=== PATIENT | female | born 1990 | race Asian ===

== ENCOUNTER 2019-07-25 18:55 | Inpatient (IN) | payer BC ==
[2019-07-25] MEDS ORDERED: MAG HYDROX/AL HYDROX/SIMETH 30 ML UNIT-DOSE CUP PO ONE (18:59)
[2019-07-25] MEDS ORDERED: FAMOTIDINE 20 MG/50 ML IVPB 20 MG/50 ML MG IVPB ONE (18:59)
[2019-07-25] MEDS ORDERED: LIDOCAINE VISCOUS 2% ORAL/TOP 20 ML UNIT-DOSE CUP MM ONE (18:59)
[2019-07-25] MEDS ORDERED: ACETAMINOPHEN 1000 MG/100 ML VIAL (NON FORMULARY) IVPB ONE (18:59)
--- NOTE | 2019-07-25 19:12 | PDOC ---
History of Present Illness - General Chief Complaint: Pain Stated Complaint: STOMACH PAIN Time Seen by Provider: 07/25/19 18:57 History Source: Patient Exam Limitations: No Limitations - History of Present Illness Initial Comments: 07/25/19 19:06 29 yo F no PMH presenting with abdominal pain. States that she has been having constant burning abdominal pain for the past several weeks. Feels "like an upset stomach". Tried Gas X and Pepto Bismol without relief. Feels better with food, but returns right after. Pain significantly worse lying flat, better in child's pose and lying curled up. Went to a GI doctor, who suspected constipation and started her on mag citrate. Had a bowel movement, but without change in symptoms. Reports that she has had intermittent abdominal pain for multiple years, but never for as consistently prolonged a period as her current episode. Had previously thought it was related to stress. Previous endoscopy did not find anything. Endorses nausea without vomiting, but denies CP, SOB, fevers/chills, urinary symptoms, flank pain, back pain. Past History - Past Medical History Allergies/Adverse Reactions: Allergies Allergy/AdvReac Type Severity Reaction Status Date / Time No Known Allergies Allergy Verified 07/25/19 19:47 COPD: No - Psycho Social/Smoking Cessation Hx Smoking History: Never smoked Have you smoked in the past 12 months: No Information on smoking cessation initiated: No Hx Alcohol Use: No Drug/Substance Use Hx: No Review of Systems - Review of Systems Able to Perform ROS?: Yes Constitutional: No: Chills, Fever, Loss of Appetite, Weakness HEENTM: No: Blurred Vision, Hearing Loss, Difficulty Swallowing Respiratory: No: Cough, Orthopnea, Shortness of Breath Cardiac (ROS): No: Chest Pain, Edema, Irregular Heart Rate, Lightheadedness ABD/GI: Yes: Constipated, Nausea. No: Abdominal Distended, Diarrhea, Vomiting : No: Burning, Dysuria, Discharge, Frequency, Flank Pain, Hematuria Musculoskeletal: No: Back Pain, Muscle Pain Neurological: No: Headache, Numbness, Tingling *Physical Exam - Vital Signs Last Vital Signs Temp Pulse Resp BP Pulse Ox 98.0 F 18 L 17 128/90 100 07/25/19 19:00 07/25/19 19:00 07/25/19 19:00 07/25/19 19:00 07/25/19 19:00 - Physical Exam Comments: 07/25/19 19:12 Gen: well-developed, well-nourished, mild distress HEENT: atraumatic, normocephalic Neck: trachea midline, supple CV: regular rate, regular rhythm Pulm: CTA b/l, no wheezing Abd: periumbilical and suprapubic tenderness, soft Extr: no edema, 2+ pulses Skin: warm, dry MSK: full ROM, no deformities Neuro: CN II-XII, FTN intact, EOMI ED Treatment Course - LABORATORY CBC & Chemistry Diagram: 07/25/19 19:00 07/25/19 19:00 Medical Decision Making - Medical Decision Making 07/25/19 19:16 29 yo F no PMH with abdominal pain. - CBC, CMP, lipase - UA/UC, u preg - CT abd/pelvis with contrast 07/25/19 20:03 Patient feeling nauseous after 2mg morphine, will give 4mg Zofran. Patient slightly less tender, but pain ongoing. UA concerning for pH 8.5 and bacteria, possible Klebsiella or Proteus infection. Will give ceftriaxone 1000mg. 07/25/19 20:35 Patient more uncomfortable. Offered 0.5mg Dilaudid vs Ketorolac 30mg, however patient would like to hold off till she gets the CT scan. 07/25/19 21:40 Patient feeling itchy in hands and cheeks. No apparent rash, no SOB, no wheezing. Will give 25mg Benadryl, f/u CT results. 07/25/19 22:20 CT scan showing moderate fecal retention in R colon and R ovarian cyst measuring 2.7 cm, which patient states she knew about. Pain still ongoing with multiple doses of 0.5 mg Dilaudid. Will admit for intractable abdominal pain. 07/26/19 00:[address] Mello about this patient, she will plan to see her when she is admitted. 07/26/19 00:26 Called by ultrasound for the result, 2.4X1.4 cyst in R ovary, some free fluid in cul-de-sac, otherwise unremarkable. Discharge - Discharge Information Problems reviewed: Yes Clinical Impression/Diagnosis: Abdominal pain Condition: Guarded - Admission Yes - Follow up/Referral - Patient Discharge Instructions - Post Discharge Activity
[2019-07-25 19:16] LABS: BASO % 0.4 % (0-2.0); EOS % 1.5 % (0-4.5); HEMATOCRIT 42.5 % (32.4-45.2); HEMOGLOBIN 14.1 GM/dL (10.7-15.3); LYMPH % 30.4 % (8-40); MCH 29.2 pg (25.7-33.7); MCHC 33.2 g/dl (32.0-36.0); MEAN CELL VOLUME 87.8 fl (80-96); MEAN PLT VOLUME 8.8 fl (7.5-11.1); MONO % 6.2 % (3.8-10.2); NEUT % 61.5 % (42.8-82.8); PLATELET COUNT 289 K/MM3 (134-434); RBC 4.84 M/mm3 (3.60-5.2); RDW 12.8 % (11.6-15.6); WHITE BLOOD COUNT 10.3 K/mm3 (4.0-10.0)
[2019-07-25] MEDS ORDERED: morphine CARPU-JECT 4 MG/1 ML DISP.SYRIN IVPUSH ONE ×2 (19:41→20:13)
[2019-07-25] MEDS ORDERED: MORPHINE SULFATE 2 MG/ML VIAL IVPUSH ONE (19:41)
--- NOTE | 2019-07-25 19:41 | PDOC ---
Attending Attestation - Resident Resident Name: Jason Fischer - ED Attending Attestation I have performed the following: I have examined & evaluated the patient, The case was reviewed & discussed with the resident, I agree w/resident's findings & plan, Exceptions are as noted - HPI HPI: 07/26/19 01:05 Ms. 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 Over the past few weeks, pain has been nearly constant Pain is described as burning, "a severe abdominal cramp", or "like an upset stomach". Her symptoms worsen noticably when she is laying flat (therefore she prefers o be seated upright, or in child's pose) No diarrhea Nausea noted, no vomiting She has noted that eating seems to improve her symptoms but within a few minutes , her pain recurs She had tried Gas X and Pepto Bismol without relief. Pt was seen by a GI doctor, who suspected constipation and started her on mag citrate. She did have a bowel movement, but without change in symptoms. Endorses nausea without vomiting, but denies CP, SOB, fevers/chills, urinary symptoms, flank pain, back pain. - Physicial Exam PE: 07/25/19 22:14 GENERAL: The patient appears to be in pain. ENT: Ears normal, nares patent, oropharynx clear without exudates. Moist mucous membranes. NECK: Normal range of motion, supple LUNGS: Breath sounds equal, clear to auscultation bilaterally. No wheezes, and no crackles. HEART: Regular rate and rhythm, normal S1 and S2 without murmur, rub or gallop. ABDOMEN: Soft, non distended, tenderness is predominantly in the left periumbilical area EXTREMITIES: Normal range of motion NEUROLOGICAL: Cranial nerves II through XII grossly intact. Normal speech. No focal neurological deficits. SKIN: Warm, Dry, normal turgor, no rashes or lesions noted. 07/25/19 22:22 - Medical Decision Making 29 yo F presenting with a complaint of abdominal pain Work up in the past has included - endoscopy (no ulcers, H.pylori negative), ultrasound (fibroid noted on the first one, repeated and not subsequently seen) DD: gastritis/PUD, Inflammatory bowel disease, colitis, ovarian cyst, ovarian torsion, gastroparesis?, Twelve-lead EKG was performed and reviewed by me. There is normal sinus rhythm with a normal rate. The axis is normal. The intervals are normal. There are no ST or T wave abnormalities. Impression: Normal twelve-lead EKG Laboratory Tests 07/25/19 07/25/19 07/25/19 19:00 19:00 19:20 WBC 10.3 H Hgb 14.1 Hct 42.5 Plt Count 289 BUN 18.4 H Creatinine 0.9 Lipase 322 Urine Nitrite Ur Leukocyte Esterase Urine WBC (Auto) Urine RBC (Auto) Urine HCG, Qual Negative 07/25/19 19:20 WBC Hgb Hct Plt Count BUN Creatinine Lipase Urine Nitrite Negative Ur Leukocyte Esterase Trace Urine WBC (Auto) 12 Urine RBC (Auto) 1 Urine HCG, Qual 07/25/19 21:30 Pt brought back from CT scan Pt more comfortable Resting 07/25/19 21:50 Pt reports feeling itchy Given Claritin to prevent further itching 07/25/19 22:15 Pain returned Given Dilaudid 0.5mg IV Requests Reglan IV 07/25/19 22:22 07/26/19 01:04 TVUS performed No evidence of Ovarian Torsion (report called in to Dr. Fischer) 07/26/19 01:10 Clinical impression: Intractable abdominal pain, initial presentation Constipation, initial presentation Vomiting, initial presentation
[2019-07-25 19:42] LABS: EPI CELLS 8.1 /HPF (0-5/HPF); HYALINE CASTS 6 /lpf (0-8); PH,URINE 8.5 (5.0-8.0); URINE APPEARANCE CLOUDY; URINE BACTERIA 365.7 /hpf (NEGATIVE); URINE BILIRUBIN NEGATIVE (NEGATIVE); URINE COLOR YELLOW; URINE GLUCOSE (UA) NEGATIVE (NEGATIVE); URINE KETONE NEGATIVE (NEGATIVE); URINE LEUK ESTERASE TRACE (NEGATIVE); URINE NITRITE NEGATIVE (NEGATIVE); URINE PROTEIN NEGATIVE (NEGATIVE); URINE RBC 1 /hpf (0-4); URINE UROBILINOGEN 0.2 mg/dL (0.2-1.0); URINE WBC 12 /hpf (0-5)
[2019-07-25 19:46] LABS: ALBUMIN 3.8 g/dl (3.4-5.0); BILIRUBIN,TOTAL 0.5 mg/dL (0.2-1); BLOOD UREA NITROGEN 18.4 mg/dL (7-18); CALCIUM 9.6 mg/dL (8.5-10.1); CREATININE 0.9 mg/dL (0.55-1.3); POTASSIUM 4.4 mmol/L (3.5-5.1); TOT PROT 7.3 g/dl (6.4-8.2)
[2019-07-25] MEDS ORDERED: MORPHINE SULFATE 2 MG/ML VIAL ONE ×2 (19:51→20:14)
[2019-07-25] MEDS ORDERED: ONDANSETRON 4 MG/2 ML VIAL IVPUSH ONE ×2 (19:56→20:51)
[2019-07-25] MEDS ORDERED: CEFTRIAXONE 1,000 MG in DEXTROSE 5%-WATER - 50 ML IVPB ONE (19:57)
[2019-07-25] MEDS ORDERED: ONDANSETRON 4 MG/2 ML VIAL ONE ×2 (20:00→20:55)
[2019-07-25] MEDS ORDERED: CEFTRIAXONE 1 GM/50 ML BAG ONE (20:06)
[2019-07-25] MEDS ORDERED: SODIUM CHLORIDE 0.9% 500 ML INFUS.BAG IV ONE ×2 (20:29→23:48)
[2019-07-25] MEDS ORDERED: HYDROmorphone HCL CARPU-JECT 2 MG/1 ML DISP.SYRIN IVPB ONE (20:50)
[2019-07-25] MEDS ORDERED: HYDROmorphone HCl 2 MG/ML VIAL ONE ×2 (20:55→22:08)
[2019-07-25] MEDS ORDERED: LORATADINE 10 MG TABLET PO ONE (21:42)
[2019-07-25] MEDS ORDERED: LORATADINE 10 MG TABLET ONE (21:48)
[2019-07-25] MEDS ORDERED: HYDROmorphone HCL CARPU-JECT 2 MG/1 ML DISP.SYRIN IVPUSH ONE (22:05)
[2019-07-25] MEDS ORDERED: METOCLOPRAMIDE HCL INJECTION 10 MG/2 ML VIAL IVPUSH ONE (22:14)
[2019-07-25] MEDS ORDERED: METOCLOPRAMIDE HCL INJECTION 10 MG/2 ML VIAL ONE (22:17)
[2019-07-25] MEDS ORDERED: HYOSCYAMINE SULFATE 0.125 MG TABLET PO ONE (22:41)
[2019-07-26] MEDS ORDERED: DOCUSATE SODIUM 100 MG CAPSULE (FP) PO PRN (00:57)
[2019-07-26] MEDS ORDERED: MORPHINE SULFATE 2 MG/ML VIAL IVPUSH PRN (00:57)
[2019-07-26] MEDS ORDERED: DEXTROSE 5%-NORMAL SALINE 1,000 ML IV SCH (01:00)
[2019-07-26] MEDS ORDERED: ONDANSETRON 4 MG/2 ML VIAL IVPUSH PRN (01:01)
[2019-07-26] MEDS ORDERED: SODIUM PHOSPHATE/NA BIPHOS 133 ML ENEMA PR ONE ×2 (01:01→02:11)
--- NOTE | 2019-07-26 01:07 | HP ---
CHIEF COMPLAINT: abdominal pain PCP: none HISTORY OF PRESENT ILLNESS: Patient is a 29 y/o female with no past medical history who presents for abdominal pain. Patient has had this pain on and off for 4 years. She reports she has been to multiple GI doctors. Most recently she saw a GI doctor on who though her pain may be related to constipation. Patient reports the pain began on Saturday and is in her LLQ. She describes the pain as sharp. It is worse when she lies flat and is sometimes relieved with laying on her stomach or in cheryl pose. Patient only takes control which was also started 4 years ago. Patient has also followed up with her OBGYN who states that at one point she had a fibroid, but on another visit the fibroid was gone. The pain is not related to her mentrual cycles. Patient reports she typically has at least one bowel movement a day, sometimes they are not very large. After seeing the GI on she took Magnesium citrate yesterday around 4 pm. Since then she has had four large bowel movements. She ate breakfast and lunch today but then had multiple episodes of vomiting. Patient denies any family members with similar problems. Her mother has a thyroid condition She thought the pain may be related to stress but has never related it to one trigger. She has had endoscopy's done, but no colonoscopies. She denies headache, chest pain , or shortness of breath. LKMP: July 15. 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 ER course was notable for: (1) CT ABD Pelvis: modearte fecal retention (2) (3) Recent Travel: denies PAST MEDICAL HISTORY: none PAST SURGICAL HISTORY: none Social History: Smoking: denies Alcohol: occasionally Drugs: denies Allergies No Known Allergies Allergy (Verified 07/25/19 19:47) HOME MEDICATIONS: REVIEW OF SYSTEMS CONSTITUTIONAL: Absent: fever, chills, diaphoresis, generalized weakness, malaise, loss of appetite, weight change HEENT: Absent: rhinorrhea, nasal congestion, throat pain, throat swelling, difficulty swallowing, mouth swelling, ear pain, eye pain, visual changes CARDIOVASCULAR: Absent: chest pain, syncope, palpitations, irregular heart rate, lightheadedness , peripheral edema RESPIRATORY: Absent: cough, shortness of breath, dyspnea with exertion, orthopnea, wheezing, stridor, hemoptysis GASTROINTESTINAL:abdominal pain, nausea, vomiting, constipation, Absent: abdominal distension, diarrhea, melena, hematochezia GENITOURINARY: Absent: dysuria, frequency, urgency, hesitancy, hematuria, flank pain, genital pain MUSCULOSKELETAL: Absent: myalgia, arthralgia, joint swelling, back pain, neck pain SKIN: Absent: rash, itching, pallor HEMATOLOGIC/IMMUNOLOGIC: Absent: easy bleeding, easy bruising, lymphadenopathy, frequent infections ENDOCRINE: Absent: unexplained weight gain, unexplained weight loss, heat intolerance, cold intolerance NEUROLOGIC: Absent: headache, focal weakness or paresthesias, dizziness, unsteady gait, seizure, mental status changes, bladder or bowel incontinence PSYCHIATRIC: Absent: anxiety, depression, suicidal or homicidal ideation, hallucinations. PHYSICAL EXAMINATION Vital Signs - 24 hr 07/25/19 07/25/19 07/25/19 19:00 20:03 22:05 Temperature 98.0 F Pulse Rate 18 L Pulse Rate [ 82 94 H Right Radial] Respiratory 17 18 Rate Blood Pressure 128/90 Blood Pressure 104/60 [Right Arm] O2 Sat by Pulse 100 99 Oximetry (%) GENERAL: Awake, alert, and fully oriented, nauseous throughout interview, mild hair thinning HEAD: Normal with no signs of trauma. EYES: Pupils equal, round and reactive to light, extraocular movements intact, EARS, NOSE, THROAT:Moist mucous membranes. LUNGS: Breath sounds equal, clear to auscultation bilaterally. No wheezes, and no crackles. No accessory muscle use. HEART: Regular rate and rhythm, normal S1 and S2 without murmur, rub or gallop. ABDOMEN: Soft, not distended, tender to palpation on LLQ MUSCULOSKELETAL: Normal range of motion at all joints. LOWER EXTREMITIES: 2+ pulses, warm, well-perfused. No calf tenderness. No peripheral edema. NEUROLOGICAL: Cranial nerves II-XII intact. PSYCHIATRIC: Cooperative. Good eye contact. Appropriate mood and affect. SKIN: Warm, dry, normal turgor, no rashes or lesions noted, normal capillary refill. Laboratory Results - last 24 hr CBC, BMP 07/25/19 19:00 07/25/19 19:00 ASSESSMENT/PLAN: Patient is a 29 y/o female with no past medical history who presents for abdominal pain. #abdominal pain - Constipation vs inflammatory disease vs endometriosis vs endocrine - f/u with Dr Mello - f/u with OBGYN - morphine 2 q 4 for pain - zofran 4 q6h for nausea QTC 452 - CT ABD/pelvis: no obstruction or distension, moderate fecal retention, uterus deviated to right, 2.7 cm R ovarian cyst - f/u transvaginal US - f/u TSH #DVT ppx - Lovenox 40 sq daily FEN - D5NS @ 100 Dispo: monitor on med surg Visit type - Emergency Visit Emergency Visit: Yes ED Registration Date: 07/25/19 Care time: The patient presented to the Emergency Department on the above date and was hospitalized for further evaluation of their emergent condition. - New Patient This patient is new to me today: Yes Date on this admission: 07/27/19 - Critical Care Critical Care patient: No ATTENDING PHYSICIAN STATEMENT I saw and evaluated the patient. I reviewed the resident's note and discussed the case with the resident. I agree with the resident's findings and plan as documented. SUBJECTIVE: OBJECTIVE: ASSESSMENT AND PLAN:
[2019-07-26] MEDS ORDERED: ONDANSETRON 4 MG/2 ML VIAL ONE (01:08)
--- NOTE | 2019-07-26 01:08 | PN ---
Teaching Attending Note Name of Resident: Aleja Will ATTENDING PHYSICIAN STATEMENT I saw and evaluated the patient. I reviewed the resident's note and discussed the case with the resident. I agree with the resident's findings and plan as documented. SUBJECTIVE: Patient is a 29 year old woman with PMH of recurrent lower abdominal pain for 4 years who presents for left lower abdominal pain for about 5 days. There has been associated vomiting and the pain crampy and constant. She get brief relief after vomiting. 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 She has been evaluated by about 4 GI doctors as well as a LIEUTENANT SHIFT SUPERVISOR doctor, but does not have a PCP at this time. She has had an EGD and pelvic sonogram and was found to have an ovarian cyst as well as fibroids. Most recently she saw a GI doctor on who thought her pain may be related to constipation but she did not get releif after taking magnesium citrate laxative. Patient reports the pain began on Saturday and is in her LLQ. She describes the pain as sharp. It is worse when she lies flat and is sometimes relieved with laying on her stomach. Patient takes oral control pills which was also started 4 years ago. The pain is not related to her menstrual cycles, but she has had bouts of painful intercourse. Patient reports she typically has at least one bowel movement a day , sometimes they are not very large. There is no FH of GI disorder or unexplained abdominal pain. She has FH of DM and hypothyroidism. Has not had a colonoscopy or evaluation for endometriosis by her LIEUTENANT SHIFT SUPERVISOR. She denies headache, chest pain, fever, chills, dysuria, frequency or shortness of breath. Denies smoking, alcohol or illicit drug use. LMP was July 15, 2019. She is engaged and is getting in August. OBJECTIVE: Alert and in pain Vital Signs Period Temp Pulse Resp BP Sys/Allen Pulse Ox Last 24 Hr 98.0 F 18-94 17-18 104-128/60-90 99-100 HEENT: No Jaundice, eye redness or discharge, PERRLA, EOMI. Normocephalic, atraumatic. External ears are normal and hearing is grossly intact. No nasal discharge. Neck: Supple, nontender. No palpable adenopathy or thyromegaly. No JVD Chest: Good effort. Clear to auscultation and percussion. Heart: Regular. No S3, rub or murmur Abdomen: Not distended, soft, lower abdominal tenderness; no HSM. No rebound or guarding. Normal bowel sounds. Ext: Peripheral pulses intact. No leg edema. Skin: Warm and dry. No petechiae, rash or ecchymosis. Neuro: Alert. Oriented x3. CN 2-12 grossly intact. Sensation grossly intact in all four extremities and DTR are symmetric. Psych: Appropriate mood and affect. Good insight. Current Medications Generic Name Dose Route Start Last Admin Trade Name Freq PRN Reason Stop Dose Admin Docusate Sodium 100 mg 07/26/19 00:57 Colace - PO BID PRN CONSTIPATION Enoxaparin Sodium 40 mg 07/26/19 10:00 Lovenox - SQ DAILY [facility] Dextrose/Sodium Chloride 1,000 mls @ 100 mls/hr 07/26/19 01:00 D5-Ns - IV ASDIR JOSE ELIAS Morphine Sulfate 2 mg 07/26/19 00:57 Morphine Sulfate IVPUSH Q6H PRN PAIN LEVEL 6-10 Ondansetron HCl 4 mg 07/26/19 01:01 07/26/19 01:10 Zofran Injection IVPUSH 4 mg Q4H PRN Administration NAUSEA Pantoprazole Sodium 40 mg 07/26/19 10:00 Protonix Iv IVPUSH DAILY [facility] Sodium Phosphate 133 ml 07/26/19 02:11 Fleet Adult Rectal Enema - [place] 07/26/19 02:12 ONCE ONE Abnormal Lab Results 07/25/19 07/25/19 07/25/19 19:00 19:00 19:20 WBC 10.3 H Anion Gap 6 L BUN 18.4 H Random Glucose 109 H Urine pH 8.5 H ASSESSMENT AND PLAN: 1. Abdominal pain syndrome - Etiology unclear. CT scan showed moderate fecal retention and right ovarian cyst. Results of transvaginal sonogram pending. Will treat with IV D5NS, IV morphine, IV zofran and IV protonix. Will give a fleet enema. Based on what workup she has already had in the past, she needs to get a colonoscopy to rule out IBD and then LIEUTENANT SHIFT SUPERVISOR evaluatioon for endometriosis. A switch from her current oral contraceptive pill has been recommended. Consult LIEUTENANT SHIFT SUPERVISOR and GI. Has pyuria but trace leukocyte esterase - will continue IV Rocephin for UTI pending culture report. EKG is NSR with no significant changes. 2. DVT prophylaxis - Lovenox 40 mg SQ q 24 hours. 3. Advance directives - Full code
[2019-07-26] MEDS ORDERED: diphenhydrAMINE HCL 25 MG CAPSULE (FP) PO ONE ×2 (01:19→01:28)
[2019-07-26 03:26] VITALS: BMI 17.6
[2019-07-26 07:30] LABS: BASO % 0.3 % (0-2.0); EOS % 0.3 % (0-4.5); HEMOGLOBIN 12.4 GM/dL (10.7-15.3); MCH 28.9 pg (25.7-33.7); MCHC 32.7 g/dl (32.0-36.0); MEAN CELL VOLUME 88.5 fl (80-96); NEUT % 69.4 % (42.8-82.8); PLATELET COUNT 237 K/MM3 (134-434); RBC 4.29 M/mm3 (3.60-5.2); RDW 13.1 % (11.6-15.6); WHITE BLOOD COUNT 9.2 K/mm3 (4.0-10.0)
[2019-07-26 08:02] LABS: ALBUMIN 3.1 g/dl (3.4-5.0); BILIRUBIN,TOTAL 0.6 mg/dL (0.2-1); CALCIUM 7.9 mg/dL (8.5-10.1); CREATININE 0.7 mg/dL (0.55-1.3); MAGNESIUM 1.8 mg/dL (1.8-2.4); PHOSPHOROUS 2.8 mg/dL (2.5-4.9); POTASSIUM 4.5 mmol/L (3.5-5.1); TOT PROT 6.1 g/dl (6.4-8.2)
--- NOTE | 2019-07-26 08:02 | CON.GI ---
Consult - History of Present Illness History of Present Illness: GI CONSULT DICTATED ADVANCE TO LOW RESIDUE LACTOSE FREE DIET IF TOLERATES CAN BE DISCHARGED HOME WITH OUTPT GI F/U PLEASE SEE FULL CONSULT FOR DETAILS - Past Medical History ...LMP: 07/15/19 ...: No - Alcohol/Substance Use Hx Alcohol Use: Yes (occassional drink) - Smoking History Smoking history: Never smoked Have you smoked in the past 12 months: No Home Medications - Allergies Allergies/Adverse Reactions: Allergies Allergy/AdvReac Type Severity Reaction Status Date / Time No Known Allergies Allergy Verified 07/25/19 19:47 - Home Medications Home Medications: Ambulatory Orders Acetaminophen [Tylenol] 650 mg PO Q4H PRN 07/26/19 Hair Formula Tablet 1 tablet PO DAILY 07/26/19 Ibuprofen [Advil -] 200 mg PO Q4H PRN 07/26/19 Norethindrone-E.estradiol-Iron [Junel Fe 1 mg-20 Mcg Tablet] 1 tab PO DAILY Physical Exam-GI Vital Signs: Vital Signs Temperature 98.1 F 07/26/19 05:53 Pulse Rate 87 07/26/19 06:59 Respiratory Rate 16 07/26/19 06:59 Blood Pressure 97/54 L 07/26/19 06:59 O2 Sat by Pulse Oximetry (%) 99 07/25/19 22:05 Labs: CBC, BMP 07/26/19 06:39
[2019-07-26] MEDS ORDERED: FLU VACCINE QUAD 60 MCG/0.5 ML (MDV 19-20) IM ONE (10:00)
[2019-07-26] MEDS ORDERED: ENOXAPARIN NA (PORCINE) 40 MG/0.4 ML DISP.SYRIN SQ SCH (10:00)
[2019-07-26] MEDS ORDERED: PANTOPRAZOLE SODIUM 40 MG VIAL IVPUSH SCH (10:00)
--- NOTE | 2019-07-26 10:59 | CON.OBG ---
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 ct scan done , revealed retained fecolith. & rt ovarian cyst. 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 or frequency ) ...LMP: 07/15/19 ...: No - Past Surgical History Additional Surgical History: endoscopy - Alcohol/Substance Use Hx Alcohol Use: Yes (occassional drink) History of Substance Use: reports: None - Smoking History Smoking history: Never smoked Have you smoked in the past 12 months: No Home Medications - Allergies Allergies/Adverse Reactions: Allergies Allergy/AdvReac Type Severity Reaction Status Date / Time No Known Allergies Allergy Verified 07/25/19 19:47 - Home Medications Home Medications: Ambulatory Orders Acetaminophen [Tylenol] 650 mg PO Q4H PRN 07/26/19 Hair Formula Tablet 1 tablet PO DAILY 07/26/19 Ibuprofen [Advil -] 200 mg PO Q4H PRN 07/26/19 Norethindrone-E.estradiol-Iron [Junel Fe 1 mg-20 Mcg Tablet] 1 tab PO DAILY Physical Exam-BOOM CRANE OPERATOR Vital Signs: Vital Signs Temperature 98.1 F 07/26/19 05:53 Pulse Rate 87 07/26/19 06:59 Respiratory Rate 16 07/26/19 06:59 Blood Pressure 97/54 L 07/26/19 06:59 O2 Sat by Pulse Oximetry (%) 99 07/25/19 22:05 Constitutional: Yes: Well Nourished, No Distress, Other (not in pain) Gastrointestinal: Yes: WNL, Normal Bowel Sounds, Soft. No: Tenderness, Tenderness, Epigastrium, Vomiting ...Rectal Exam: Yes: Deferred Renal/: Yes: WNL. No: CVA Tenderness - Left, CVA Tenderness - Right Pelvis: Yes: Other (Patient declined pelvic exam .according to her no need) Internal Exam Deferred: No Breast(s): Yes: WNL. No: Mass Psychiatric: Yes: Oriented, Other (pt states she is stressed at work & from upcoming her wedding) Labs: CBC, BMP 07/26/19 06:39 07/26/19 06:00 Laboratory Tests 07/25/19 07/25/19 19:20 19:20 Urine Protein Negative Urine Nitrite Negative Ur Leukocyte Esterase Trace Urine WBC (Auto) 12 Urine RBC (Auto) 1 Urine Casts (Auto) 6 U Epithel Cells (Auto) 8.1 U Sm Round Cell (Auto) Negative Urine Bacteria (Auto) 365.7 Urine HCG, Qual Negative Problem List - Problems (1) Right ovarian cyst Code(s): N83.201 - UNSPECIFIED OVARIAN CYST, RIGHT SIDE Assessment/Plan 29 yrs , LMP 07/15/19 , with known problems of GI issues , relieved of pain after enema , passing BM ,. Incidental finding of Rt ovarian 2.4 cm simple cyst . Low dose OC pills do not completely suppress ovarian cyst . functional cyst recommend ct low dose oc pills . repeat pelvic US [address] follow up with your Dry Plasterer Helper PMD
--- NOTE | 2019-07-26 13:43 | DS ---
Physical Exam: SUBJECTIVE: Pain much improved after enema and bowel movement. No further nausea /vomiting. No melena/hematochezia. No fever/chills. OBJECTIVE: Afebrile, Hemodynamically Stable. Last Vital Signs Temp Pulse Resp BP Pulse Ox 98.1 F 87 16 97/54 L 99 07/26/19 05:53 07/26/19 06:59 07/26/19 09:00 07/26/19 06:59 07/26/19 09:00 HEENT: Atramatic, normocephalic. HEART: S1, S2, RRR LUNGS: CLear to auscultation ABDOMEN: Soft, Mild suprapubic tenderness, no umbilical or RLQ tenderness. No guarding/rebound. Bowel Sounds normal. EXTREMITIES: No edema, no calf tenderness. NEURO: AAO x 3. Tone/Power normal all 4 extremities. Laboratory Results - last 24 hr 07/25/19 07/25/19 07/25/19 19:00 19:00 19:00 WBC 10.3 H RBC 4.84 Hgb 14.1 Hct 42.5 MCV 87.8 MCH 29.2 MCHC 33.2 RDW 12.8 Plt Count 289 MPV 8.8 Absolute Neuts (auto) 6.3 Neutrophils % 61.5 Lymphocytes % 30.4 Monocytes % 6.2 Eosinophils % 1.5 Basophils % 0.4 Nucleated RBC % 0 Sodium 140 Potassium 4.4 Chloride 105 Carbon Dioxide 29 Anion Gap 6 L BUN 18.4 H Creatinine 0.9 Est GFR (CKD-EPI)AfAm 101.56 Est GFR (CKD-EPI)NonAf 87.63 Random Glucose 109 H Calcium 9.6 Phosphorus Magnesium Total Bilirubin 0.5 AST 22 ALT 25 Alkaline Phosphatase 57 Total Protein 7.3 Albumin 3.8 Lipase 322 Cancelled TSH Urine Color Urine Appearance Urine pH Ur Specific [place] Urine Protein Urine Glucose (UA) Urine Ketones Urine Blood Urine Nitrite Urine Bilirubin Urine Urobilinogen Ur Leukocyte Esterase Urine WBC (Auto) Urine RBC (Auto) Urine Casts (Auto) U Epithel Cells (Auto) U Sm Round Cell (Auto) Urine Bacteria (Auto) Urine HCG, Qual 07/25/19 07/25/19 07/26/19 19:20 19:20 06:00 WBC RBC Hgb Hct MCV MCH MCHC RDW Plt Count MPV Absolute Neuts (auto) Neutrophils % Lymphocytes % Monocytes % Eosinophils % Basophils % Nucleated RBC % Sodium 141 Potassium 4.5 Chloride 109 H Carbon Dioxide 25 Anion Gap 7 L BUN 8.0 Creatinine 0.7 Est GFR (CKD-EPI)AfAm 137.62 Est GFR (CKD-EPI)NonAf 118.74 Random Glucose 94 Calcium 7.9 L Phosphorus 2.8 Magnesium 1.8 Total Bilirubin 0.6 AST 16 ALT 18 Alkaline Phosphatase 44 L Total Protein 6.1 L Albumin 3.1 L Lipase TSH 1.65 Urine Color Yellow Urine Appearance Cloudy Urine pH 8.5 H Ur Specific [place] 1.017 Urine Protein Negative Urine Glucose (UA) Negative Urine Ketones Negative Urine Blood Negative Urine Nitrite Negative Urine Bilirubin Negative Urine Urobilinogen 0.2 Ur Leukocyte Esterase Trace Urine WBC (Auto) 12 Urine RBC (Auto) 1 Urine Casts (Auto) 6 U Epithel Cells (Auto) 8.1 U Sm Round Cell (Auto) Negative Urine Bacteria (Auto) 365.7 Urine HCG, Qual Negative 07/26/19 06:39 WBC 9.2 RBC 4.29 Hgb 12.4 Hct 38.0 MCV 88.5 MCH 28.9 MCHC 32.7 RDW 13.1 Plt Count 237 MPV 9.0 Absolute Neuts (auto) 6.4 Neutrophils % 69.4 Lymphocytes % 25.0 Monocytes % 5.0 Eosinophils % 0.3 Basophils % 0.3 Nucleated RBC % 0 Sodium Potassium Chloride Carbon Dioxide Anion Gap BUN Creatinine Est GFR (CKD-EPI)AfAm Est GFR (CKD-EPI)NonAf Random Glucose Calcium Phosphorus Magnesium Total Bilirubin AST ALT Alkaline Phosphatase Total Protein Albumin Lipase TSH Urine Color Urine Appearance Urine pH Ur Specific [place] Urine Protein Urine Glucose (UA) Urine Ketones Urine Blood Urine Nitrite Urine Bilirubin Urine Urobilinogen Ur Leukocyte Esterase Urine WBC (Auto) Urine RBC (Auto) Urine Casts (Auto) U Epithel Cells (Auto) U Sm Round Cell (Auto) Urine Bacteria (Auto) Urine HCG, Qual Current Medications Generic Name Dose Route Start Last Admin Trade Name Freq PRN Reason Stop Dose Admin Docusate Sodium 100 mg 07/26/19 00:57 Colace - PO BID PRN CONSTIPATION Morphine Sulfate 2 mg 07/26/19 00:57 Morphine Sulfate IVPUSH Q6H PRN PAIN LEVEL 6-10 Ondansetron HCl 4 mg 07/26/19 01:01 07/26/19 01:10 Zofran Injection IVPUSH 4 mg Q4H PRN Administration NAUSEA Pantoprazole Sodium 40 mg 07/26/19 10:00 07/26/19 10:16 Protonix Iv IVPUSH 40 mg DAILY JOSE ELIAS Administration Discharge Medications Medication Instructions Recorded Docusate Sodium [Colace -] 100 mg PO BID PRN capsule 07/26/19 Glycerin [Glycerin Laxative] 5.4 gm RC DAILY PRN 5 Days #5 07/26/19 [email or web address] Hair Formula Tablet 1 tablet PO DAILY 07/26/19 Norethindrone-E.estradiol-Iron 1 tab PO DAILY 07/26/19 [Junel Fe 1 mg-20 Mcg Tablet] Polyethylene Glycol 3350 [Miralax 17 gm PO DAILY PRN #1 bottle 07/26/19 (For Daily Use) -] Sodium Phosphate,Upson-Dibasic 133 ml RC DAILY PRN 2 Days #2 enema 07/26/19 [Enema Ready To Use] Date of Admission:07/25/19 Date of Discharge: 07/26/19 Minutes to complete discharge: 45 Discharge Summary Problems reviewed: Yes Reason For Visit: ABDOMINAL PAIN Current Active Problems Abdominal pain (Acute) Right ovarian cyst (Acute) Constipation Hospital Course: 29 year old female with no significant PMH, presents with worsening, progressive abdominal pain/distension and constipation. She developed nausea/ vomiting after opiate medications and oral contrast, but had no other associated symptoms prior. No fever/chills. No melena/hematochezia. She has history of constipation and has had prior EGD and Colonoscopy several years ago without pathology. Currently her symptoms have resolved after enema and adequate BM. CT A/P - No acute findings. R Ovarian Cyst She was seen by Gastroenterology with recommendation for low residue/lactose free diet. She will be given prescriptions for Miralax, Glycerin suppositories, and Enemas if required, along with GI follow up for monitoring and further investigations if necessary. She also underwent TV US which confirmed R ovarian cyst, likely physiological as per Gynecology who evaluated her. 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 Condition: Good - Instructions Diet, Activity, Other Instructions: DISCHARGE DIAGNOSES: 1. CONSTIPATION 2. R OVARIAN CYST FOLLOW UP: 1. GI - Dr. Mello 2. Gynecology PRESCRIPTIONS: MIRALAX DAILY PRN GLYCERIN SUPP PRN FLEET ENEMA PRN DIET: LOW FIBER, LACTOSE FREE DIET PLEASE FOLLOW WITH GASTROENTEROLOGY OUTPATIENT FOR FURTHER MONITORING/WORK-UP /INVESTIGATIONS Referrals: Aleja Mello DO [Staff Physician] - Disposition: HOME - Home Medications Comprehensive Discharge Medication List: Ambulatory Orders Docusate Sodium [Colace -] 100 mg PO BID PRN capsule 07/26/19 Glycerin [Glycerin Laxative] 5.4 gm RC DAILY PRN 5 Days #5 [email or web address] 07/26/19 Hair Formula Tablet 1 tablet PO DAILY 07/26/19 Norethindrone-E.estradiol-Iron [Junel Fe 1 mg-20 Mcg Tablet] 1 tab PO DAILY Polyethylene Glycol 3350 [Miralax (For Daily Use) -] 17 gm PO DAILY PRN #1 bottle 07/26/19 Sodium Phosphate,Upson-Dibasic [Enema Ready To Use] 133 ml RC DAILY PRN 2 Days # 2 enema 07/26/19 This patient is new to me today: Yes Date on this admission: 07/26/19 Emergency Visit: Yes ED Registration Date: 07/25/19 Care time: The patient presented to the Emergency Department on the above date and was hospitalized for further evaluation of their emergent condition. Critical Care patient: No - Discharge Referral Referred to [facility] Med P.C.: No
[2019-07-26 15:24] VITALS: BP 99/52; PULSE 82; TEMP 98
--- NOTE | 2019-07-26 15:56 | CONS ---
DATE OF CONSULTATION: DATE OF DICTATION: 07/26/2019 The patient is a 29-year-old female, with no significant past medical history, who presented to the hospital with complaints of abdominal pain. She reports being constipated on and off and having intermittent pain over the past 4 years. Apparently early in the week, she saw a medical practice administrator in [facility], , who diagnosed her with constipation and told her to take magnesium citrate. Shortly after taking the magnesium citrate, she developed pain. When the pain worsened, she came to the emergency room for further evaluation. She also experienced nausea and vomiting. Pain is located in the left lower quadrant. There are no fevers or chills, melena, hematochezia, and she has never had an endoscopic evaluation in the past. Imaging in the ER revealed fecal retention. Past medical and surgical history as listed in the HPI. ALLERGIES: No known drug allergies. SOCIAL HISTORY: Does not drink, smoke, or use drugs. FAMILY HISTORY: No history of GI or gynecologic malignancy. Review of systems as per the HPI. PHYSICAL EXAMINATION: Vital Signs: Temperature 98, pulse 71, blood pressure 97/54, respiratory rate 16, pulse oximetry 99% on room air. General: No acute distress. HEENT: Anicteric sclerae. Cardiovascular: S1, S2, regular rate and rhythm. Lungs: Bilaterally clear to auscultation. Abdomen: Soft and nontender. Extremities: No edema. LABORATORY DATA: White blood cell count 9.2, hemoglobin 12, hematocrit 38, platelet count 237. Sodium 141, potassium 4.5, BUN 8, creatinine 0.7, glucose 94, total bilirubin 0.6, AST 16, ALT 18, lipase 322. Urine negative for infection. Abdomen and pelvis CT scan revealed a 2.5 cm right ovarian cyst, appendix was air-filled and not visualized well, there was abundant stool. She also had a transvaginal ultrasound to evaluate the ovarian cyst, which did not reveal torsion. Followup ultrasound was recommended. She was seen by Industrial Chemistry Teacher during this hospitalization. IMPRESSION: Abdominal secondary to constipation and laxative use. I do not suspect she has acute appendicitis, considering her pain has resolved, her appetite is normal, and she does not have leukocytosis or fever. RECOMMENDATION: Advance diet to a low residue lactose-free diet. Avoid narcotics and start a bowel regimen as an outpatient consisting of MiraLax b.i.d., slowly adding fiber back into the diet. She should follow up with her medical practice administrator in [facility] for further management and potentially a diagnostic colonoscopy. If she tolerates her full diet, no objection to discharge home later today. DO JOSE TOBAR/[id number]
--- NOTE | 2019-07-26 16:47 | EKG ---
Test Reason : Blood Pressure : / mmHG Vent. Rate : 080 BPM Atrial Rate : 080 BPM P-R Int : 154 ms QRS Dur : 084 ms QT Int : 392 ms P-R-T Axes : 075 083 060 degrees QTc Int : 452 ms NORMAL SINUS RHYTHM NORMAL ECG NO PREVIOUS ECGS AVAILABLE Confirmed by CLARISSA CLEMENTE MD ([id number]) on 07/26/2019 4:47:29 PM Referred By: Confirmed By:CLARISSA CLEMENTE MD
== END 2019-07-26 14:18 | disposition home or self-care (01) | DRG 392 ==
LOC: JER 18:55 → JERBED 22:35 → J4S 07-26 01:44
PROVIDERS: ADMIT Internal Medicine
DX: K59.09 Other constipation (principal); N83.201 Unspecified ovarian cyst, right side; R11.2 Nausea with vomiting, unspecified
CPT/HCPCS: 36415; 74177-TC; 76830-TC; 80053; 81003; 83690; 83735; 84100; 84443; 84703; 85025; 87086; 93005; 93010; 99285-25; J0131

== ENCOUNTER 2019-08-20 11:02 | Inpatient (IN) | payer BC ==
--- NOTE | 2019-08-20 11:03 | PDOC ---
History of Present Illness - General Stated Complaint: ABD PAIN Time Seen by Provider: 08/20/19 11:03 - History of Present Illness Initial Comments: 29 year old female with PMH of right ovarian cyst and frequent presentations for abdominal pains to our ED and other EDs presenting with similar abdominal pain nausea and NBNB vomiting. States that she has [facility] phase [facility] scans that only demonstrated a small right sided ovarian cyst. There was also a small comment regarding dilation of the CBD. Patient saw Dr. Mcgrath earlier today who gave her Toradol x 2, normal saline, and Zofran IV 4. No fevers, chills, cough, chest pain, syncope, or other symptoms. 08/20/19 11:27 Past History - Past Medical History Allergies/Adverse Reactions: Allergies Allergy/AdvReac Type Severity Reaction Status Date / Time No Known Allergies Allergy Verified 08/20/19 11:11 COPD: No GI Disorders: Yes (constipation) Disorders: Yes (had a fibroid, now gone) - Psycho Social/Smoking Cessation Hx Smoking History: Never smoked Have you smoked in the past 12 months: No Hx Alcohol Use: Yes (occassional drink) Drug/Substance Use Hx: No Substance Use Type: None Hx Substance Use Treatment: No Review of Systems - Review of Systems Constitutional: No: Chills, Diaphoresis, Fever HEENTM: No: Blurred Vision, Tearing Respiratory: No: Cough, Orthopnea, Productive cough ABD/GI: Yes: Nausea, Vomiting. No: Diarrhea : No: Burning, Dysuria Musculoskeletal: No: Back Pain, Joint Pain Neurological: No: Headache, Numbness, Paresthesia Hematologic/Lymphatic: No: Anemia, Blood Clots, Easy Bleeding *Physical Exam - Physical Exam General Appearance: Yes: Nourished, Appropriately Dressed. No: Apparent Distress HEENT: positive: EOMI, ADELINE, Normal ENT Inspection, Normal Voice Neck: positive: Trachea midline, Normal Thyroid, Supple. negative: Tender, Rigid Respiratory/Chest: positive: Lungs Clear, Normal Breath Sounds. negative: Chest Tender, Respiratory Distress, Accessory Muscle Use Cardiovascular: positive: Regular Rhythm, Regular Rate Gastrointestinal/Abdominal: positive: Normal Bowel Sounds, Tender (right upper quadrant tenderness and left lower quadrant tenderness to mild palpation), Flat , Soft Rectal Exam: negative: deferred, melena Lymphatic: negative: Adenopathy, Tenderness Musculoskeletal: positive: Normal Inspection. negative: Decreased Range of Motion Extremity: positive: Normal Capillary Refill, Normal Inspection, Normal Range of Motion. negative: Tender Integumentary: positive: Normal Color, Dry, Warm Neurologic: positive: Fully Oriented, Alert, Normal Mood/Affect, Normal Response , Motor Strength 03/01 ED Treatment Course - LABORATORY CBC & Chemistry Diagram: 08/20/19 11:28 08/20/19 11:28
[2019-08-20] MEDS ORDERED: morphine CARPU-JECT 2 MG/1 ML DISP.SYRIN IVPUSH ONE ×2 (11:12→11:54)
[2019-08-20] MEDS ORDERED: MORPHINE SULFATE 2 MG/ML VIAL ONE ×2 (11:14→11:56)
[2019-08-20] MEDS ORDERED: METOCLOPRAMIDE HCL INJECTION 10 MG/2 ML VIAL IVPUSH ONE (11:19)
[2019-08-20] MEDS ORDERED: METOCLOPRAMIDE HCL INJECTION 10 MG/2 ML VIAL ONE (11:36)
[2019-08-20 11:43] LABS: BASO % 0.3 % (0-2.0); EOS % 0.4 % (0-4.5); HEMATOCRIT 39.6 % (32.4-45.2); LYMPH % 25.4 % (8-40); MCHC 32.8 g/dl (32.0-36.0); MEAN CELL VOLUME 88.5 fl (80-96); MEAN PLT VOLUME 8.8 fl (7.5-11.1); MONO % 3.5 % (3.8-10.2); NEUT % 70.4 % (42.8-82.8); PLATELET COUNT 284 K/MM3 (134-434); RBC 4.48 M/mm3 (3.60-5.2); WHITE BLOOD COUNT 9.9 K/mm3 (4.0-10.0)
[2019-08-20 12:21] LABS: ALBUMIN 3.6 g/dl (3.4-5.0); ALK PHOS 46 U/L (45-117); ANION GAP 10 MMOL/L (8-16); BILIRUBIN,TOTAL 0.8 mg/dL (0.2-1); BLOOD UREA NITROGEN 9.4 mg/dL (7-18); CALCIUM 8.7 mg/dL (8.5-10.1); CHLORIDE 111 mmol/L (98-107); CO2 17 mmol/L (21-32); CREATININE 0.8 mg/dL (0.55-1.3); GLUCOSE,RANDOM 89 mg/dL (74-106); POTASSIUM 4.6 mmol/L (3.5-5.1); SGOT/AST 26 U/L (15-37); SGPT/ALT 22 U/L (13-61); SODIUM 138 mmol/L (136-145); TOT PROT 6.7 g/dl (6.4-8.2)
[2019-08-20 12:23] LABS: PH,URINE 7.5 (5.0-8.0); URINE APPEARANCE CLEAR; URINE BILIRUBIN NEGATIVE (NEGATIVE); URINE COLOR YELLOW; URINE GLUCOSE (UA) NEGATIVE (NEGATIVE); URINE KETONE NEGATIVE (NEGATIVE); URINE LEUK ESTERASE NEGATIVE (NEGATIVE); URINE NITRITE NEGATIVE (NEGATIVE); URINE PROTEIN NEGATIVE (NEGATIVE); URINE UROBILINOGEN 0.2 mg/dL (0.2-1.0)
[2019-08-20 12:44] LABS: INR 1.06 (0.83-1.09); PROTHROMBIN TIME (PATIENT) 12.5 SEC (9.7-13.0)
--- NOTE | 2019-08-20 13:33 | EKG ---
Test Reason : Blood Pressure : / mmHG Vent. Rate : 078 BPM Atrial Rate : 078 BPM P-R Int : 136 ms QRS Dur : 070 ms QT Int : 372 ms P-R-T Axes : 073 083 051 degrees QTc Int : 424 ms NORMAL SINUS RHYTHM NONSPECIFIC T WAVE ABNORMALITY ABNORMAL ECG WHEN COMPARED WITH ECG OF 26-JUL-2019 00:59, NONSPECIFIC T WAVE ABNORMALITY NOW EVIDENT IN ANTERIOR LEADS Confirmed by TOM ROSE, LEONOR ([id number]) on 08/20/2019 1:33:06 PM Referred By: Confirmed By:LEONOR SANTOS MD
[2019-08-20] MEDS ORDERED: CEFTRIAXONE 1,000 MG in DEXTROSE 5%-WATER - 50 ML IVPB ONE (14:40)
[2019-08-20] MEDS ORDERED: ACETAMINOPHEN 1000 MG/100 ML VIAL (NON FORMULARY) IVPB ONE (14:43)
[2019-08-20] MEDS ORDERED: SODIUM CHLORIDE 0.9% 500 ML INFUS.BAG IV ONE (14:43)
[2019-08-20] MEDS ORDERED: CEFTRIAXONE 1 GM/50 ML BAG ONE (15:18)
[2019-08-20] MEDS ORDERED: ACETAMINOPHEN INJECTION 100 ML IVPB ONE (15:18)
[2019-08-20] MEDS ORDERED: cefTRIAXone SODIUM 1 GM VIAL ONE (15:22)
[2019-08-20] MEDS: SODIUM CHLORIDE 1,000 ML IV SCH ×2 (16:17→18:01)
--- NOTE | 2019-08-20 17:27 | CON.GI ---
Consult Consult Specialty:: Gi - History of Present Illness History of Present Illness: 29b y/o F was doing well until 2 weeks ago when she developed progressive and persistent abdominal pain,. She went to [facility],had a ct which was negative and blood work was normal. She complains of abdominal bloating and constipation. I saw the patient in the office yesterday and was prescribed Xifaxan. Overnight the abdominal pain worsenned, she could not sleep . This was associated with nausea and vomiting. In the office she was given IV hydration, Toradol and Zofran with no releif. She was advised to go to the ED for further evaluation and management. In the ED lactic acid was 2.8. Ct was reviewed with Dr Gillespie. - Past Medical History Gastrointestinal: Yes: Constipation, Other (h/o endoscopy ) Renal/: Yes: Other (medical csr urine symptoms of dysuria or frequency ) ...LMP: 07/15/19 - Alcohol/Substance Use Hx Alcohol Use: Yes (occassional drink) History of Substance Use: reports: None - Smoking History Smoking history: Never smoked Have you smoked in the past 12 months: No Home Medications - Allergies Allergies/Adverse Reactions: Allergies Allergy/AdvReac Type Severity Reaction Status Date / Time No Known Allergies Allergy Verified 08/20/19 11:11 - Home Medications Home Medications: Ambulatory Orders NK [No Known Home Medication] 08/20/19 Physical Exam-GI Vital Signs: Vital Signs Temperature 98 F 08/20/19 11:09 Pulse Rate 93 H 08/20/19 11:09 Respiratory Rate 18 08/20/19 11:09 Blood Pressure 114/74 08/20/19 11:09 O2 Sat by Pulse Oximetry (%) 100 08/20/19 11:09 Constitutional: Yes: Well Nourished Eyes: Yes: Conjunctiva Clear HENT: Yes: Atraumatic Neck: Yes: Supple Cardiovascular: Yes: Regular Rate and Rhythm Respiratory: Yes: CTA Bilaterally ...Palpate: Yes: Soft, Tenderness (--diffuse, improved after receiving morphine) . No: Firm/Rigid, Guarding, Hepatomegaly, Mass, Pulsatile Mass ...Percussion: Yes: Tympanitic Labs: CBC, BMP 08/20/19 11:28 08/20/19 11:28 INR, PTT INR 1.06 (0.83-1.09) 08/20/19 11:28 Problem List - Problems (1) Abdominal pain Assessment/Plan: on oral contraceptive, elevated lactic acid, possible mesenteric stranding by CT r/o early mesenteric ischemia R> Iv hydration IV antibiotics serial abdominal examination surgical consultation Code(s): R10.9 - UNSPECIFIED ABDOMINAL PAIN
--- NOTE | 2019-08-20 17:43 | PN ---
Teaching Attending Note Name of Resident: Lana Palmer ATTENDING PHYSICIAN STATEMENT I saw and evaluated the patient. I reviewed the resident's note and discussed the case with the resident. I agree with the resident's findings and plan as documented. SUBJECTIVE: Ongoing mid-abdominal cramping and sharp abdominal pain. No fever/ chills. No nausea/vomiting. No diarrhea. OBJECTIVE: Afebrile, hemodynamically Stable Last Vital Signs Temp Pulse Resp BP Pulse Ox 98 F 93 H 18 114/74 100 08/20/19 11:09 08/20/19 11:09 08/20/19 11:09 08/20/19 11:09 08/20/19 11:09 HEENT - Atramatic, Normocephalic. Heart - S1, S2, RRR Lungs - Clear to auscultation. Abdomen - Soft, Periumbilical tenderness. No rebound. Bowel Sounds normal. Extremities - no edema, no calf tenderness. Laboratory Results - last 24 hr 08/20/19 08/20/19 08/20/19 11:28 11:28 11:28 WBC 9.9 RBC 4.48 Hgb 13.0 Hct 39.6 MCV 88.5 MCH 29.0 MCHC 32.8 RDW 13.0 Plt Count 284 MPV 8.8 Absolute Neuts (auto) 7.0 Neutrophils % 70.4 Lymphocytes % 25.4 Monocytes % 3.5 L Eosinophils % 0.4 Basophils % 0.3 Nucleated RBC % 0 ESR PT with INR INR Sodium 138 Potassium 4.6 Chloride 111 H Carbon Dioxide 17 L Anion Gap 10 BUN 9.4 Creatinine 0.8 Est GFR (CKD-EPI)AfAm 117.10 Est GFR (CKD-EPI)NonAf 101.04 Random Glucose 89 Lactic Acid 2.8 H* Calcium 8.7 Total Bilirubin 0.8 AST 26 ALT 22 Alkaline Phosphatase 46 C-Reactive Protein < 0.3 Total Protein 6.7 Albumin 3.6 Total Amylase Lipase Urine Color Urine Appearance Urine pH Ur Specific [place] Urine Protein Urine Glucose (UA) Urine Ketones Urine Blood Urine Nitrite Urine Bilirubin Urine Urobilinogen Ur Leukocyte Esterase Urine HCG, Qual 08/20/19 08/20/19 08/20/19 11:28 11:28 11:28 WBC RBC Hgb Hct MCV MCH MCHC RDW Plt Count MPV Absolute Neuts (auto) Neutrophils % Lymphocytes % Monocytes % Eosinophils % Basophils % Nucleated RBC % ESR PT with INR 12.50 INR 1.06 Sodium Potassium Chloride Carbon Dioxide Anion Gap BUN Creatinine Est GFR (CKD-EPI)AfAm Est GFR (CKD-EPI)NonAf Random Glucose Lactic Acid Calcium Total Bilirubin AST ALT Alkaline Phosphatase C-Reactive Protein Total Protein Albumin Total Amylase Lipase Urine Color Yellow Urine Appearance Clear Urine pH 7.5 Ur Specific [place] 1.005 L Urine Protein Negative Urine Glucose (UA) Negative Urine Ketones Negative Urine Blood Negative Urine Nitrite Negative Urine Bilirubin Negative Urine Urobilinogen 0.2 Ur Leukocyte Esterase Negative Urine HCG, Qual Negative 08/20/19 08/20/19 08/20/19 11:44 15:45 15:45 WBC RBC Hgb Hct MCV MCH MCHC RDW Plt Count MPV Absolute Neuts (auto) Neutrophils % Lymphocytes % Monocytes % Eosinophils % Basophils % Nucleated RBC % ESR 2 PT with INR INR Sodium Potassium Chloride Carbon Dioxide Anion Gap BUN Creatinine Est GFR (CKD-EPI)AfAm Est GFR (CKD-EPI)NonAf Random Glucose Lactic Acid 0.9 Calcium Total Bilirubin AST ALT Alkaline Phosphatase C-Reactive Protein Total Protein Albumin Total Amylase 63 Lipase Urine Color Urine Appearance Urine pH Ur Specific [place] Urine Protein Urine Glucose (UA) Urine Ketones Urine Blood Urine Nitrite Urine Bilirubin Urine Urobilinogen Ur Leukocyte Esterase Urine HCG, Qual 08/20/19 15:45 WBC RBC Hgb Hct MCV MCH MCHC RDW Plt Count MPV Absolute Neuts (auto) Neutrophils % Lymphocytes % Monocytes % Eosinophils % Basophils % Nucleated RBC % ESR PT with INR INR Sodium Potassium Chloride Carbon Dioxide Anion Gap BUN Creatinine Est GFR (CKD-EPI)AfAm Est GFR (CKD-EPI)NonAf Random Glucose Lactic Acid Calcium Total Bilirubin AST ALT Alkaline Phosphatase C-Reactive Protein Total Protein Albumin Total Amylase Lipase 161 Urine Color Urine Appearance Urine pH Ur Specific [place] Urine Protein Urine Glucose (UA) Urine Ketones Urine Blood Urine Nitrite Urine Bilirubin Urine Urobilinogen Ur Leukocyte Esterase Urine HCG, Qual Current Medications Generic Name Dose Route Start Last Admin Trade Name Freq PRN Reason Stop Dose Admin Enoxaparin Sodium 40 mg 08/21/19 10:00 Lovenox - SQ DAILY JOSE ELIAS Sodium Chloride 1,000 mls @ 125 mls/hr 08/20/19 16:15 08/20/19 16:17 Normal Saline - IV 125 mls/hr ASDIR JOSE ELIAS Administration Ceftriaxone Sodium 1 gm/ 50 mls @ 100 mls/hr 08/21/19 10:00 Dextrose IVPB DAILY JOSE ELIAS Metronidazole 500 mg in 100 mls @ 100 mls/hr 08/20/19 18:00 Flagyl 500mg Premixed Ivpb - IVPB Q8H-IV JOSE ELIAS Pantoprazole Sodium 40 mg 08/20/19 22:00 Protonix Iv IVPUSH BID JOSE ELIAS Home Medications Medication Instructions Recorded NK [No Known Home Medication] 08/20/19 ASSESSMENT AND PLAN: 29 year old female with history of recurrent non-specific abdominal pain, presents with severe abdominal pain, bloating. Hx of constipation which has reportedly reslved since daily Miralax. Some nausea and vomiting associated with Xifaxan given by Dr. Mcgrath as out-patient. 1. Non-specific abdominal pain, etiology unclear. Amylase/Lipase wnl. US Abdomen - No acute findings - no cholecystitis. CTA Abdomen - no acute findings except for ovarian cyst. Vasculature intact, without ischemia. Lactic Acid 2.8, now 0.9 after IV hydration. Seen by GI who recommends IV Abx (Cef/Flagyl) and Surgical evaluation. Morphine/Zofran prn. 2. R Ovarian Cyst - increasing in size from 1 month ago as seen on TV US (2.9 x 1.3 x 1 cm with cystic nodule) Gynecology consulted. DVT Px - Lovenox SQ GI Px - PPI BID
[2019-08-20] MEDS ORDERED: METOCLOPRAMIDE HCL INJECTION 10 MG/2 ML VIAL IVPUSH PRN (17:50)
--- NOTE | 2019-08-20 17:53 | HP ---
CHIEF COMPLAINT: severe abd pain PCP: GI: Dr. Mcgrath HISTORY OF PRESENT ILLNESS: 29F w/ pmhx of chronic abd pain presents to the ED with severe periumbilical pain. Pain is described as intense and sharp, lasting about 10 seconds at a time , non-radiating and is not associated with eating food. She has a hx of chronic constipation as well which she takes Miralax and is able to have daily bowel movements. Additionally, pt admits to two episodes of vomiting today after taking abx given by GI. The abd pain is not associated with food. Her only medications include OCP and Miralax. Denies taking any herbal supplements, vitamins. Laying flat makes it worse. Of note, she has seen 5 GI physicians in the past with no known diagnosis for her symptoms. Also has had an endoscopy in the past that was unremarkable. She was discharged last month at [facility] and imaging showed a R ovarian cyst. During last admission, she was evaluated by ROBOTICS SPECIALIST with recommendation for only outpatient follow up. Earlier this week, she was seen in [facility] ED where CT imaging was done that was unremarkable except for the R ovarian cyst. Yesterday, she was seen by GI for blood work and celiac work up. This morning, the abd pain was severe and proceeded to see her GI in office after which she was given Toradol, Zofran, and IV fluids with no symptomatic relief. 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 Allergies No Known Allergies Allergy (Verified 08/20/19 11:11) HOME MEDICATIONS: Home Medications Medication Instructions Recorded NK [No Known Home Medication] 08/20/19 REVIEW OF SYSTEMS CONSTITUTIONAL: Absent: fever, chills, diaphoresis, generalized weakness, malaise, loss of appetite, weight change HEENT: Absent: rhinorrhea, nasal congestion, throat pain, throat swelling, difficulty swallowing, mouth swelling, ear pain, eye pain, visual changes CARDIOVASCULAR: Absent: chest pain, syncope, palpitations, irregular heart rate, lightheadedness , peripheral edema RESPIRATORY: Absent: cough, shortness of breath, dyspnea with exertion, orthopnea, wheezing, stridor, hemoptysis GASTROINTESTINAL: abdominal pain, abdominal distension, nausea, vomiting Absent: diarrhea, constipation, melena, hematochezia GENITOURINARY: Absent: dysuria, frequency, urgency, hesitancy, hematuria, flank pain, genital pain MUSCULOSKELETAL: Absent: myalgia, arthralgia, joint swelling, back pain, neck pain SKIN: Absent: rash, itching, pallor HEMATOLOGIC/IMMUNOLOGIC: Absent: easy bleeding, easy bruising, lymphadenopathy, frequent infections ENDOCRINE: Absent: unexplained weight gain, unexplained weight loss, heat intolerance, cold intolerance NEUROLOGIC: Absent: headache, focal weakness or paresthesias, dizziness, unsteady gait, seizure, mental status changes, bladder or bowel incontinence PHYSICAL EXAMINATION Vital Signs - 24 hr 08/20/19 11:09 Temperature 98 F Pulse Rate 93 H Respiratory 18 Rate Blood Pressure 114/74 O2 Sat by Pulse 100 Oximetry (%) GENERAL: Pleasant, young female, non-toxic appearing. Mildly uncomfortable. Cooperative. HEENT: AT/NC. EOMI. MMM. NECK: Normal range of motion, supple without lymphadenopathy, JVD, or masses. LUNGS: CTA B/L. No wheezes, rhonchi, rales noted. Symmetric chest rise. HEART: RRR. Normal S1, S2. No murmurs noted. ABDOMEN: Soft, mildly distended. Tenderness to deep palpation in periumbilical region. -Pittman sign. MUSCULOSKELETAL: Normal range of motion at all joints. No bony deformities or tenderness. No CVA tenderness. EXTREMITIES: Moves all extremities. 2+ dorsalis pedis pulses. NEUROLOGICAL: Cranial nerves II-XII intact. Normal speech. SKIN: Warm, dry, normal turgor, no rashes or lesions noted, normal capillary refill. Laboratory Results - last 24 hr 08/20/19 08/20/19 08/20/19 11:28 11:28 11:28 WBC 9.9 RBC 4.48 Hgb 13.0 Hct 39.6 MCV 88.5 MCH 29.0 MCHC 32.8 RDW 13.0 Plt Count 284 MPV 8.8 Absolute Neuts (auto) 7.0 Neutrophils % 70.4 Lymphocytes % 25.4 Monocytes % 3.5 L Eosinophils % 0.4 Basophils % 0.3 Nucleated RBC % 0 ESR PT with INR INR Sodium 138 Potassium 4.6 Chloride 111 H Carbon Dioxide 17 L Anion Gap 10 BUN 9.4 Creatinine 0.8 Est GFR (CKD-EPI)AfAm 117.10 Est GFR (CKD-EPI)NonAf 101.04 Random Glucose 89 Lactic Acid 2.8 H* Calcium 8.7 Total Bilirubin 0.8 AST 26 ALT 22 Alkaline Phosphatase 46 C-Reactive Protein < 0.3 Total Protein 6.7 Albumin 3.6 Total Amylase Lipase Urine Color Urine Appearance Urine pH Ur Specific [place] Urine Protein Urine Glucose (UA) Urine Ketones Urine Blood Urine Nitrite Urine Bilirubin Urine Urobilinogen Ur Leukocyte Esterase Urine HCG, Qual 08/20/19 08/20/19 08/20/19 11:28 11:28 11:28 WBC RBC Hgb Hct MCV MCH MCHC RDW Plt Count MPV Absolute Neuts (auto) Neutrophils % Lymphocytes % Monocytes % Eosinophils % Basophils % Nucleated RBC % ESR PT with INR 12.50 INR 1.06 Sodium Potassium Chloride Carbon Dioxide Anion Gap BUN Creatinine Est GFR (CKD-EPI)AfAm Est GFR (CKD-EPI)NonAf Random Glucose Lactic Acid Calcium Total Bilirubin AST ALT Alkaline Phosphatase C-Reactive Protein Total Protein Albumin Total Amylase Lipase Urine Color Yellow Urine Appearance Clear Urine pH 7.5 Ur Specific [place] 1.005 L Urine Protein Negative Urine Glucose (UA) Negative Urine Ketones Negative Urine Blood Negative Urine Nitrite Negative Urine Bilirubin Negative Urine Urobilinogen 0.2 Ur Leukocyte Esterase Negative Urine HCG, Qual Negative 08/20/19 08/20/19 08/20/19 11:44 15:45 15:45 WBC RBC Hgb Hct MCV MCH MCHC RDW Plt Count MPV Absolute Neuts (auto) Neutrophils % Lymphocytes % Monocytes % Eosinophils % Basophils % Nucleated RBC % ESR 2 PT with INR INR Sodium Potassium Chloride Carbon Dioxide Anion Gap BUN Creatinine Est GFR (CKD-EPI)AfAm Est GFR (CKD-EPI)NonAf Random Glucose Lactic Acid 0.9 Calcium Total Bilirubin AST ALT Alkaline Phosphatase C-Reactive Protein Total Protein Albumin Total Amylase 63 Lipase Urine Color Urine Appearance Urine pH Ur Specific [place] Urine Protein Urine Glucose (UA) Urine Ketones Urine Blood Urine Nitrite Urine Bilirubin Urine Urobilinogen Ur Leukocyte Esterase Urine HCG, Qual 08/20/19 15:45 WBC RBC Hgb Hct MCV MCH MCHC RDW Plt Count MPV Absolute Neuts (auto) Neutrophils % Lymphocytes % Monocytes % Eosinophils % Basophils % Nucleated RBC % ESR PT with INR INR Sodium Potassium Chloride Carbon Dioxide Anion Gap BUN Creatinine Est GFR (CKD-EPI)AfAm Est GFR (CKD-EPI)NonAf Random Glucose Lactic Acid Calcium Total Bilirubin AST ALT Alkaline Phosphatase C-Reactive Protein Total Protein Albumin Total Amylase Lipase 161 Urine Color Urine Appearance Urine pH Ur Specific [place] Urine Protein Urine Glucose (UA) Urine Ketones Urine Blood Urine Nitrite Urine Bilirubin Urine Urobilinogen Ur Leukocyte Esterase Urine HCG, Qual ASSESSMENT/PLAN: 29F w/ pmhx of chronic abd pain presents to the ED with severe periumbilical pain. #Persistent abd pain; etiology unclear - CTAP unremarkable, Abd U/S showed R ovarian cyst - GI consulted with recommendation for IV Flagyl and Ceftriaxone; Surg consulted for further eval - Morphine for pain - Zofran for nausea - Protonix 40 BID - IVf #R Ovarian Cyst; TVUS showed increase in size (now 2.9 x 1.3 x 1 cm with cystic nodule from 2.5cm) - ROBOTICS SPECIALIST consulted for further eval #Prophylaxis - DVT: Lovenox - GI: Protonix BID #FEN -IVf -recheck lytes in AM -NPO Dispo -admit to med-surg Visit type - Emergency Visit Emergency Visit: Yes ED Registration Date: 08/20/19 Care time: The patient presented to the Emergency Department on the above date and was hospitalized for further evaluation of their emergent condition. - New Patient This patient is new to me today: Yes Date on this admission: 08/20/19 - Critical Care Critical Care patient: No ATTENDING PHYSICIAN STATEMENT I saw and evaluated the patient. I reviewed the resident's note and discussed the case with the resident. I agree with the resident's findings and plan as documented. SUBJECTIVE: OBJECTIVE: ASSESSMENT AND PLAN:
[2019-08-20] MEDS ORDERED: morphine CARPU-JECT 4 MG/1 ML DISP.SYRIN IVPUSH SCH (18:00)
--- NOTE | 2019-08-20 18:25 | PDOC ---
Documentation entered by Bianca Valdez SCRIBE, acting as scribe for Jolene Calhoun MD. Jolene Calhoun MD: This documentation has been prepared by the José Miguel schwartz Sammi, SCRIBE, under my direction and personally reviewed by me in its entirety. I confirm that the documentation accurately reflects all work, treatment, procedures, and medical decision making performed by me. Attending Attestation - Resident Resident Name: Claire Alexander - ED Attending Attestation I have performed the following: I have examined & evaluated the patient, The case was reviewed & discussed with the resident, I agree w/resident's findings & plan, Exceptions are as noted - HPI HPI: 08/20/19 13:38 The patient is a 29 year old female with no significant PMH who presents to the emergency department for evaluation progressively worsening diffuse lower abdominal pain for weeks with associated NBNB vomiting this morning. Abd pain occurs without any significant triggers, but the last two severe episodes occurred towards the end of her menstrual cycle. Pt's LMP was 5 days ago. She recently started control again (pt on control for dysmenorrhea). Patient has been evaluated in our ED and [facility] for evaluation of similar symptoms where she reportedly had two CTAP w/ PO and IV contrast that showed only a right sided ovarian cyst. Pain is not associated with fevers, urinary sxs, diarrhea, constipation. She was being evaluated by Dr. Mcgrath this morning for continued symptoms where he administered Toradol, Zofran, and fluids to the patient with no relief of symptoms, prompting her to come in for ED evaluation. Dr. Mcgrath requests CTA abd/pelvis to r/o mesenteric ischemia. Denies chest pain, shortness of breath, headache, focal weakness/numbness and dizziness. Denies dysuria, frequency, urgency and hematuria. Allergies: NKA - Physicial Exam PE: 08/20/19 18:19 GENERAL: Awake, alert, and fully oriented, in no acute distress but appears uncomfortable EYES: PERRLA, EOMI, sclera anicteric, conjunctiva clear ENT: Oropharynx clear without exudates. Moist mucosa NECK: Normal ROM, supple, no lymphadenopathy, or masses LUNGS: Breath sounds equal, clear to auscultation bilaterally. No wheezes, and no crackles HEART: Regular rate and rhythm, normal S1 and S2, no murmurs, rubs or gallops ABDOMEN: Soft, mild suprapubic ttp, otherwise non tender, normoactive bowel sounds. No guarding, no rebound. No masses EXTREMITIES: Normal range of motion, no edema. No erythema, or tenderness NEUROLOGICAL: Normal speech, cranial nerves intact, equal strength and sensation b/l SKIN: Warm, Dry, normal turgor, no rashes or lesions noted. - Medical Decision Making 08/20/19 16:21 29yo F presents to the ED with recurrent episodes of severe lower abd pain, possibly triggered by menstruation, and initiation of OCPs Vitals wnl Exam with suprapubic ttp Per Dr. Mcgrath, pt will need CTA to r/o mesenteric ischemic - CTA was negative for acute pathology and showed R sided ovarian cyst. No torsion. TVUS showed previously seen R sided ovarian cyst as well, with some debris inside Concern for possible endometriosis Pt still in pain despite multiple doses morphine and tylenol Case discussed with Dr. Finnegan who will evaluate pt, discussed concerns for endometriosis as source of pt's pain Pt admitted for intractable abdominal pain
[2019-08-20] MEDS ORDERED: HYDROmorphone HCl 2 MG/ML VIAL IVPB ONE (18:32)
[2019-08-20] MEDS ORDERED: ONDANSETRON 4 MG/2 ML VIAL IVPB ONE (18:32)
[2019-08-20] MEDS ORDERED: ONDANSETRON 4 MG/2 ML VIAL IVPUSH PRN (18:48)
--- NOTE | 2019-08-20 19:58 | CONSULT ---
Consult Consult Specialty:: Abdominal pain Reason for Consultation:: Abdominal pain - History of Present Illness History of Present Illness: 29 yr old female presents with 5 weeks history of intermittent abdominal pain that is episodic and lasts several hours, not associated with nausea or vominting or changes in bowel habits. She reports some constipation for which She was treated with mirilax. numerous episods of pain in recent past requiring several visits to the ED, 4 Ct scans with constrast and consultation with 5 different Gastroenterologists. - Past Medical History Gastrointestinal: Yes: Constipation, Other (h/o endoscopy ) Renal/: Yes: Other (inorganic chemist urine symptoms of dysuria or frequency ) ...LMP: 07/15/19 - Alcohol/Substance Use Hx Alcohol Use: Yes (occassional drink) History of Substance Use: reports: None - Smoking History Smoking history: Never smoked Have you smoked in the past 12 months: No Home Medications - Allergies Allergies/Adverse Reactions: Allergies Allergy/AdvReac Type Severity Reaction Status Date / Time No Known Allergies Allergy Verified 08/20/19 11:11 - Home Medications Home Medications: Ambulatory Orders NK [No Known Home Medication] 08/20/19 Physical Exam Vital Signs: Vital Signs Temperature 98.6 F 08/20/19 18:07 Pulse Rate 72 08/20/19 18:07 Respiratory Rate 18 08/20/19 18:34 Blood Pressure 96/59 L 08/20/19 18:07 O2 Sat by Pulse Oximetry (%) 100 08/20/19 18:34 Gastrointestinal: Yes: Other (mild suprapubic tenderness no peritoneal signs) Labs: CBC, BMP 08/20/19 11:28 08/20/19 11:28 Imaging - Results Cat Scan: Report Reviewed, Image Reviewed Ultrasound: Report Reviewed, Image Reviewed Problem List - Problems (1) Abdominal pain Problems reviewed: Yes Code(s): R10.9 - UNSPECIFIED ABDOMINAL PAIN Assessment/Plan 29 yr old female with recurrent Abdominal pain of unknown etiology There is no need for acute intervention. Will observe for now. Given the negative work up and recurrent nature and severity of pain , Diagnostic laparoscopy may be considered to attempt to resolve diagnostic dilemma.Discussed with patient and family.
[2019-08-20] MEDS: MORPHINE SULFATE 2 MG/ML VIAL IVPUSH PRN (21:27)
[2019-08-20] MEDS: PANTOPRAZOLE SODIUM 40 MG VIAL IVPUSH SCH (21:28)
[2019-08-20] MEDS: PROCHLORPERAZINE INJECTION 10 MG/2 ML VIAL IVPB PRN (21:55)
[2019-08-20] MEDS ORDERED: PANTOPRAZOLE SODIUM 40 MG in SODIUM CHLORIDE 100 ML IVPB SCH (22:00)
--- NOTE | 2019-08-21 00:31 | CONS ---
DATE OF CONSULTATION: 08/20/2019 REASON FOR CONSULTATION: Abdominal and pelvic pain. HISTORY OF PRESENT ILLNESS: This patient is a 29-year-old 0, para 0, with history of chronic abdominal and pelvic pain with exacerbation, I have seen multiple times in the emergency room and had a recent admission for periumbilical pain which now very severe and located suprapubically. Currently on oral contraception. Periods are regular. No vaginal discharge or dysuria. History of constipation which she takes Miralax, and she has had negative EGD. CAT scan of the abdomen and pelvic sonogram also had shown 2.9 cm right ovarian cyst which has been persistent in the past as well with no pelvic fluid or other pathology. Medicated with Dilaudid PHYSICAL EXAMINATION: Vital signs: Her blood pressure was 93/64, temperature 95.7, pulse 82. Abdomen: Soft. No distention. No rebound or guarding. No CVA. Pelvic: External genitalia to be normal. Vagina: Normal discharge. Cervix was clean. No cervical motion tenderness. Uterus was normal size, anteverted. Adnexa no masses were palpable. There was some tenderness on the suprapubic area and bimanual exam. Cul-de-sac no masses were felt. IMPRESSION: Chronic abdominal and pelvic pain, possible gastrointestinal related. Cannot rule out endometriosis. Laparoscopy was suggested and also continues oral contraception. Advised Lupron discussed. Patient scheduled to be seen by the gastrointestinal for possible colonoscopy. Will reevaluate if the colonoscopy is negative. MIGUEL BANEGAS M.D. [id number]
[2019-08-21] MEDS ORDERED: ACETAMINOPHEN 1000 MG/100 ML VIAL (NON FORMULARY) IVPB ONE (05:45)
[2019-08-21] MEDS: PROCHLORPERAZINE INJECTION 10 MG/2 ML VIAL IVPB PRN (06:56)
[2019-08-21 07:34] LABS: HEMATOCRIT 36.9 % (32.4-45.2); HEMOGLOBIN 12.1 GM/dL (10.7-15.3); MCHC 32.8 g/dl (32.0-36.0); MEAN CELL VOLUME 88.3 fl (80-96); PLATELET COUNT 252 K/MM3 (134-434); RBC 4.18 M/mm3 (3.60-5.2); RDW 13.2 % (11.6-15.6); WHITE BLOOD COUNT 7.4 K/mm3 (4.0-10.0)
[2019-08-21] MEDS: MORPHINE SULFATE 2 MG/ML VIAL IVPUSH PRN (07:47)
[2019-08-21 08:01] LABS: ALBUMIN 3.2 g/dl (3.4-5.0); BILIRUBIN,TOTAL 1.1 mg/dL (0.2-1); BLOOD UREA NITROGEN 6.4 mg/dL (7-18); CALCIUM 8.3 mg/dL (8.5-10.1); CREATININE 0.7 mg/dL (0.55-1.3); MAGNESIUM 1.7 mg/dL (1.8-2.4); POTASSIUM 4.3 mmol/L (3.5-5.1); TOT PROT 6.1 g/dl (6.4-8.2)
[2019-08-21] MEDS ORDERED: DEXTROSE 5%-NORMAL SALINE 1,000 ML IV SCH (08:30)
[2019-08-21] MEDS ORDERED: MAGNESIUM SULF 50% (8.12 MEQ/2 ML-1 GM VIAL) IVPB ONE ×2 (09:00→09:03)
[2019-08-21] MEDS ORDERED: cefTRIAXone SODIUM 1 GM VIAL ONE (09:14)
[2019-08-21] MEDS ORDERED: DEXTROSE 5%-WATER - 50 ML IVPB ONE (09:15)
--- NOTE | 2019-08-21 09:27 | CONSULT ---
Consult - text type - Consultation Consultation Note: Continues to report pain Physical exam unchanged minimal tenderness No acute surgical issue Consider diagnostic laparoscopy once diagnostic work up in exhausted
[2019-08-21] MEDS: PANTOPRAZOLE SODIUM 40 MG VIAL IVPUSH SCH ×2 (09:47→22:59)
[2019-08-21] MEDS: CEFTRIAXONE 1 GM in DEXTROSE 5%-WATER - 50 ML IVPB SCH (09:48)
[2019-08-21] MEDS: ENOXAPARIN NA (PORCINE) 40 MG/0.4 ML DISP.SYRIN SQ SCH (09:50)
[2019-08-21] MEDS ORDERED: ENOXAPARIN NA (PORCINE) 40 MG/0.4 ML DISP.SYRIN SQ SCH (10:00)
--- NOTE | 2019-08-21 10:43 | PN ---
Progress Note, Physician History of Present Illness: GI FOLLOW UP NOTE Patient examined and case discussed with Dr Mcgrath Patient states her abdominal pain is the same and has not improved. States having constant, non-radiating aching/dull umbilical pain associated with nausea and vomiting. She had 2 episodes of vomitus yellow in color. Denies fevers or chills. - Current Medication List Current Medications: Active Medications Enoxaparin Sodium (Lovenox -) 40 mg SQ DAILY [facility] Last Admin: 08/21/19 09:50 Dose: 40 mg Ceftriaxone Sodium 1 gm/ (Dextrose) 50 mls @ 100 mls/hr IVPB DAILY [facility] Last Admin: 08/21/19 09:48 Dose: 100 mls/hr Metronidazole (Flagyl 500mg Premixed Ivpb -) 500 mg in 100 mls @ 100 mls/hr IVPB Q8H-IV [facility] Last Admin: 08/21/19 09:47 Dose: 100 mls/hr Dextrose/Sodium Chloride (D5-Ns -) 1,000 mls @ 125 mls/hr IV ASDIR [facility] Last Admin: 08/21/19 08:49 Dose: 125 mls/hr Morphine Sulfate (Morphine Sulfate) 2 mg IVPUSH Q4H PRN PRN Reason: PAIN LEVEL 6-10 Last Admin: 08/21/19 07:47 Dose: 2 mg Ondansetron HCl (Zofran Injection) 4 mg IVPUSH Q6H PRN PRN Reason: NAUSEA AND/OR VOMITING Last Admin: 08/21/19 04:01 Dose: 4 mg Pantoprazole Sodium (Protonix Iv) 40 mg IVPUSH BID [facility] Last Admin: 08/21/19 09:47 Dose: 40 mg Prochlorperazine Edisylate (Compazine Injection -) 10 mg IVPB Q6H PRN PRN Reason: NAUSEA AND/OR VOMITING Last Admin: 08/21/19 06:56 Dose: 10 mg - Objective Vital Signs: Vital Signs Temperature 98.8 F 08/21/19 05:41 Pulse Rate 85 08/21/19 05:41 Respiratory Rate 18 08/21/19 05:41 Blood Pressure 90/61 08/21/19 05:41 O2 Sat by Pulse Oximetry (%) 99 08/21/19 00:29 Constitutional: Yes: No Distress, Calm Eyes: Yes: Conjunctiva Clear HENT: Yes: Atraumatic Cardiovascular: Yes: Regular Rate and Rhythm Respiratory: Yes: Regular, CTA Bilaterally Gastrointestinal: Yes: Normal Bowel Sounds, Soft, Tenderness (umbilical area) Neurological: Yes: Alert, Oriented Psychiatric: Yes: Alert, Oriented Labs: CBC, BMP 08/21/19 06:00 08/21/19 06:30 INR, PTT INR 1.06 (0.83-1.09) 08/20/19 11:28 <Opal Rivera - Last Filed: 08/21/19 10:40> History of Present Illness: 1pm events reviewed discussed with Dr Bryant , clinically improved, possibly acute event improved with hydration and antibiotics - Current Medication List Current Medications: Active Medications Enoxaparin Sodium (Lovenox -) 40 mg SQ DAILY [facility] Last Admin: 08/21/19 09:50 Dose: 40 mg Ceftriaxone Sodium 1 gm/ (Dextrose) 50 mls @ 100 mls/hr IVPB DAILY [facility] Last Admin: 08/21/19 09:48 Dose: 100 mls/hr Metronidazole (Flagyl 500mg Premixed Ivpb -) 500 mg in 100 mls @ 100 mls/hr IVPB Q8H-IV [facility] Last Admin: 08/21/19 09:47 Dose: 100 mls/hr Dextrose/Sodium Chloride (D5-Ns -) 1,000 mls @ 125 mls/hr IV ASDIR [facility] Last Admin: 08/21/19 08:49 Dose: 125 mls/hr Morphine Sulfate (Morphine Sulfate) 2 mg IVPUSH Q4H PRN PRN Reason: PAIN LEVEL 6-10 Last Admin: 08/21/19 07:47 Dose: 2 mg Ondansetron HCl (Zofran Injection) 4 mg IVPUSH Q6H PRN PRN Reason: NAUSEA AND/OR VOMITING Last Admin: 08/21/19 04:01 Dose: 4 mg Pantoprazole Sodium (Protonix Iv) 40 mg IVPUSH BID [facility] Last Admin: 08/21/19 09:47 Dose: 40 mg Prochlorperazine Edisylate (Compazine Injection -) 10 mg IVPB Q6H PRN PRN Reason: NAUSEA AND/OR VOMITING Last Admin: 08/21/19 06:56 Dose: 10 mg - Objective Vital Signs: Vital Signs Temperature 98.2 F 08/21/19 10:00 Pulse Rate 81 08/21/19 10:00 Respiratory Rate 17 08/21/19 10:00 Blood Pressure 87/45 L 08/21/19 10:00 O2 Sat by Pulse Oximetry (%) 100 08/21/19 08:00 Labs: CBC, BMP 08/21/19 06:00 08/21/19 06:30 INR, PTT INR 1.06 (0.83-1.09) 08/20/19 11:28 <Lan Mcgrath - Last Filed: 08/21/19 13:23> Problem List - Problems (1) Abdominal pain Assessment/Plan: >Surgery and CURATOR OF EDUCATION on board recommend diagnostic laparascopy >IV hydration >IV antibiotics >clear liquids Code(s): R10.9 - UNSPECIFIED ABDOMINAL PAIN <Opal Rivera - Last Filed: 08/21/19 10:40> - Problems (1) Abdominal pain Assessment/Plan: r/o ischemic bowel, congenital band, intermittent intussception R> advance diet hypercoaguable w/u as an outpatient' EGD and colonoscopy at this may worsen clinical condition' if diet tolerated for possible discharge Code(s): R10.9 - UNSPECIFIED ABDOMINAL PAIN <Lan Mcgrath - Last Filed: 08/21/19 13:23>
[2019-08-21] MEDS ORDERED: ACETAMINOPHEN 1000 MG/100 ML VIAL (NON FORMULARY) IVPB PRN (13:23)
[2019-08-21 14:08] VITALS: BMI 17.3
--- NOTE | 2019-08-21 15:36 | PN ---
Teaching Attending Note Name of Resident: Israel Newman ATTENDING PHYSICIAN STATEMENT I saw and evaluated the patient. I reviewed the resident's note and discussed the case with the resident. I agree with the resident's findings and plan as documented. SUBJECTIVE: Ongoing mid-abdominal cramping and sharp abdominal pain. No fever/ chills. Some nausea/vomiting of bilious fluid this AM. No hematmesis, no diarrhea. OBJECTIVE: Afebrile, hemodynamically Stable Last Vital Signs Temp Pulse Resp BP Pulse Ox 98.3 F 58 L 20 91/40 L 100 08/21/19 13:59 08/21/19 13:59 08/21/19 13:59 08/21/19 13:59 08/21/19 08:00 HEENT - Atramatic, Normocephalic. Heart - S1, S2, RRR Lungs - Clear to auscultation. Abdomen - Soft, Periumbilical tenderness. No rebound. Bowel Sounds normal. Extremities - no edema, no calf tenderness. Laboratory Results - last 24 hr 08/20/19 08/20/19 08/20/19 15:45 15:45 15:45 WBC RBC Hgb Hct MCV MCH MCHC RDW Plt Count MPV Sodium Potassium Chloride Carbon Dioxide Anion Gap BUN Creatinine Est GFR (CKD-EPI)AfAm Est GFR (CKD-EPI)NonAf Random Glucose Lactic Acid 0.9 Calcium Magnesium Total Bilirubin AST ALT Alkaline Phosphatase Total Protein Albumin Total Amylase 63 Lipase 161 08/21/19 08/21/19 06:00 06:30 WBC 7.4 RBC 4.18 Hgb 12.1 Hct 36.9 MCV 88.3 MCH 29.0 MCHC 32.8 RDW 13.2 Plt Count 252 MPV 9.0 Sodium 136 Potassium 4.3 Chloride 106 Carbon Dioxide 18 L Anion Gap 12 BUN 6.4 L Creatinine 0.7 Est GFR (CKD-EPI)AfAm 137.62 Est GFR (CKD-EPI)NonAf 118.74 Random Glucose 55 L Lactic Acid Calcium 8.3 L Magnesium 1.7 L Total Bilirubin 1.1 H AST 18 ALT 18 Alkaline Phosphatase 45 Total Protein 6.1 L Albumin 3.2 L Total Amylase Lipase Current Medications Generic Name Dose Route Start Last Admin Trade Name Freq PRN Reason Stop Dose Admin Acetaminophen 1,000 mg 08/21/19 13:23 Ofirmev Injection - IVPB Q6H PRN PAIN LEVEL 4 - 6 Enoxaparin Sodium 40 mg 08/21/19 10:00 08/21/19 09:50 Lovenox - SQ 40 mg DAILY JOSE ELIAS Administration Ceftriaxone Sodium 1 gm/ 50 mls @ 100 mls/hr 08/21/19 10:00 08/21/19 09:48 Dextrose IVPB 100 mls/hr DAILY JOSE ELIAS Administration Metronidazole 500 mg in 100 mls @ 100 mls/hr 08/20/19 18:00 08/21/19 09:47 Flagyl 500mg Premixed Ivpb - IVPB 100 mls/hr Q8H-IV JOSE ELIAS Administration Dextrose/Sodium Chloride 1,000 mls @ 125 mls/hr 08/21/19 08:30 08/21/19 08:49 D5-Ns - IV 125 mls/hr ASDIR JOSE ELIAS Administration Morphine Sulfate 2 mg 08/20/19 17:50 08/21/19 07:47 Morphine Sulfate IVPUSH 2 mg Q4H PRN Administration PAIN LEVEL 6-10 Ondansetron HCl 4 mg 08/20/19 18:48 08/21/19 04:01 Zofran Injection IVPUSH 4 mg Q6H PRN Administration NAUSEA AND/OR VOMITING Pantoprazole Sodium 40 mg 08/20/19 22:00 08/21/19 09:47 Protonix Iv IVPUSH 40 mg BID JOSE ELIAS Administration Prochlorperazine Edisylate 10 mg 08/20/19 21:46 08/21/19 06:56 Compazine Injection - IVPB 10 mg Q6H PRN Administration NAUSEA AND/OR VOMITING Sodium Phosphate 133 ml 08/21/19 13:25 Fleet Adult Rectal Enema - [place] 08/21/19 13:26 ONCE ONE Home Medications Medication Instructions Recorded Linaclotide [Linzess] 145 mcg PO DAILY 08/21/19 Norethindrone-E.estradiol-Iron 1 tab PO DAILY 08/21/19 [Junel Fe 1 mg-20 Mcg Tablet] Rifaximin [Xifaxan] 550 mg PO TID 08/21/19 ASSESSMENT AND PLAN: 29 year old female with history of recurrent non-specific abdominal pain, presents with severe abdominal pain, bloating. Hx of constipation which has reportedly reslved since daily Miralax. Some nausea and vomiting associated with Xifaxan given by Dr. Mcgrath as out-patient. 1. Non-specific abdominal pain, etiology unclear, refractory requiring IV analgesia Amylase/Lipase wnl. US Abdomen - No acute findings - no cholecystitis. CTA Abdomen - no acute findings except for ovarian cyst. Vasculature intact, without ischemia. Lactic Acid 2.8, now 0.9 after IV hydration. Seen by GI who recommends IV Abx (Cef/Flagyl), unclear plan wrt scope plans Evaluated by Surgery - for possible exploratory/diagnostic laparoscopy if no Gi resolution Morphine/Zofran prn. Still not tolerating much PO, will maintain on IV Fluids. 2. R Ovarian Cyst - increasing in size from 1 month ago as seen on TV US (2.9 x 1.3 x 1 cm with cystic nodule) Gynecology evaluated - pain does not appear to be related to ovarian cyst, ? endometriosis. 3. Hypomagnesemia - repleted. DVT Px - Lovenox SQ GI Px - PPI BID
--- NOTE | 2019-08-21 15:38 | PN ---
Physical Exam: SUBJECTIVE: Patient seen and examined O/N: bilious emesis x2. Passing flatus. Last morphine was 2mg was ~0747 OBJECTIVE: Vital Signs Period Temp Pulse Resp BP Sys/Allen Pulse Ox Last 24 Hr 97.7 F-98.8 F 58-85 17-20 87-96/40-64 99-100 GENERAL: The patient is awake, alert. NAD HEAD: NC EYES: nonicteric sclear ENT: nares patent, moist mucous membranes. NECK: Trachea midline, full range of motion, supple. LUNGS: CTA B/L, no wheezescrackles, no accessory muscle use. HEART: Regular rate and rhythm, S1, S2 without murmur, rub or gallop. ABDOMEN: Soft, ND. Mild tenderness with deep palpation midline hypogastrium. No palpable masses EXTREMITIES: 2+ pulses, warm, no edema. NEUROLOGICAL: Normal speech, gait not observed. SKIN: Warm, dry, normal turgor Laboratory Results - last 24 hr 08/20/19 08/20/19 08/20/19 15:45 15:45 15:45 WBC RBC Hgb Hct MCV MCH MCHC RDW Plt Count MPV Sodium Potassium Chloride Carbon Dioxide Anion Gap BUN Creatinine Est GFR (CKD-EPI)AfAm Est GFR (CKD-EPI)NonAf Random Glucose Lactic Acid 0.9 Calcium Magnesium Total Bilirubin AST ALT Alkaline Phosphatase Total Protein Albumin Total Amylase 63 Lipase 161 08/21/19 08/21/19 06:00 06:30 WBC 7.4 RBC 4.18 Hgb 12.1 Hct 36.9 MCV 88.3 MCH 29.0 MCHC 32.8 RDW 13.2 Plt Count 252 MPV 9.0 Sodium 136 Potassium 4.3 Chloride 106 Carbon Dioxide 18 L Anion Gap 12 BUN 6.4 L Creatinine 0.7 Est GFR (CKD-EPI)AfAm 137.62 Est GFR (CKD-EPI)NonAf 118.74 Random Glucose 55 L Lactic Acid Calcium 8.3 L Magnesium 1.7 L Total Bilirubin 1.1 H AST 18 ALT 18 Alkaline Phosphatase 45 Total Protein 6.1 L Albumin 3.2 L Total Amylase Lipase Active Medications Generic Name Dose Route Start Last Admin Trade Name Freq PRN Reason Stop Dose Admin Acetaminophen 1,000 mg 08/21/19 13:23 Ofirmev Injection - IVPB Q6H PRN PAIN LEVEL 4 - 6 Enoxaparin Sodium 40 mg 08/21/19 10:00 08/21/19 09:50 Lovenox - SQ 40 mg DAILY JOSE ELIAS Administration Ceftriaxone Sodium 1 gm/ 50 mls @ 100 mls/hr 08/21/19 10:00 08/21/19 09:48 Dextrose IVPB 100 mls/hr DAILY JOES ELIAS Administration Metronidazole 500 mg in 100 mls @ 100 mls/hr 08/20/19 18:00 08/21/19 09:47 Flagyl 500mg Premixed Ivpb - IVPB 100 mls/hr Q8H-IV JOSE ELIAS Administration Dextrose/Sodium Chloride 1,000 mls @ 125 mls/hr 08/21/19 08:30 08/21/19 08:49 D5-Ns - IV 125 mls/hr ASDIR JOSE ELIAS Administration Morphine Sulfate 2 mg 08/20/19 17:50 08/21/19 07:47 Morphine Sulfate IVPUSH 2 mg Q4H PRN Administration PAIN LEVEL 6-10 Ondansetron HCl 4 mg 08/20/19 18:48 08/21/19 04:01 Zofran Injection IVPUSH 4 mg Q6H PRN Administration NAUSEA AND/OR VOMITING Pantoprazole Sodium 40 mg 08/20/19 22:00 08/21/19 09:47 Protonix Iv IVPUSH 40 mg BID JOSE ELIAS Administration Prochlorperazine Edisylate 10 mg 08/20/19 21:46 08/21/19 06:56 Compazine Injection - IVPB 10 mg Q6H PRN Administration NAUSEA AND/OR VOMITING Sodium Phosphate 133 ml 08/21/19 13:25 Fleet Adult Rectal Enema - [place] 08/21/19 13:26 ONCE ONE ASSESSMENT/PLAN: 29F w/ pmh of chronic abd pain(x3ys, ho neg EGD, never csope), h/o ovarian cyst presenting for worsened periumbilical/hypogastric abd pain #Persistent abd pain; etiology unclear > CTA A/P: R ovarian cyst 3.6 x 1.7cm, patent vessels > Abd U/S: R ovarian cyst 2.9x 1.3cm(from 2.5cm) > UA: neg > GI consult: -- IV Flagyl and Ceftriaxone; Surg consulted for further eval -- CLD then ADAT -- Fleet Enema -- no EGD and cscope at this time -- outpt hypercoaguable w/u - Morphine for pain - Zofran, prochloperazine for nausea - Protonix 40 BID - IVF #R Ovarian Cyst > TVUS showed increase in size (now 2.9 x 1.3 x 1 cm with cystic nodule from 2.5cm) - [employer] consult: -- diagnostic laparoscopy if everything else is r/o #Prophylaxis - DVT: Lovenox - GI: Protonix BID #FEN -D5NS @125 -replete lytes PRN -CLD then ADAT Dispo -admit to med-surg Visit type - Emergency Visit Emergency Visit: No - New Patient This patient is new to me today: No - Critical Care Critical Care patient: No ATTENDING PHYSICIAN STATEMENT I saw and evaluated the patient. I reviewed the resident's note and discussed the case with the resident. I agree with the resident's findings and plan as documented. SUBJECTIVE: OBJECTIVE: ASSESSMENT AND PLAN:
[2019-08-21] MEDS: SODIUM PHOSPHATE/NA BIPHOS 133 ML ENEMA PR SCH ×2 (18:52→22:59)
[2019-08-21] MEDS ORDERED: diphenhydrAMINE HCL 25 MG CAPSULE (FP) PO ONE (20:18)
[2019-08-21] MEDS ORDERED: ACETAMINOPHEN 325 MG TABLET (FP) PO PRN (20:19)
[2019-08-21] MEDS ORDERED: ONDANSETRON *ODT* 4 MG TABLET SL ONE (20:20)
[2019-08-21] MEDS ORDERED: PANTOPRAZOLE 40 MG TABLET (FP) PO ONE (21:01)
[2019-08-22] MEDS: SODIUM PHOSPHATE/NA BIPHOS 133 ML ENEMA PR SCH (01:26)
[2019-08-22 07:02] LABS: BLOOD UREA NITROGEN 5.2 mg/dL (7-18); CALCIUM 8.4 mg/dL (8.5-10.1); CREATININE 0.7 mg/dL (0.55-1.3); MAGNESIUM 2.1 mg/dL (1.8-2.4); PHOSPHOROUS 2.4 mg/dL (2.5-4.9); POTASSIUM 4.2 mmol/L (3.5-5.1)
[2019-08-22] MEDS ORDERED: NAPH,MB-DB/K PH,MBDB POWDER PACKET PO ONE (08:04)
[2019-08-22] MEDS ORDERED: SODIUM CHLORIDE 1,000 ML IV SCH (08:15)
--- NOTE | 2019-08-22 09:37 | PN ---
Progress Note (short form) - Note Progress Note: Tolerating diet clinically improving Reports less pain today / enema yesterday. Exam benign No acute surgical isues Follow up as outpatient Problem List - Problems (1) Abdominal pain Code(s): R10.9 - UNSPECIFIED ABDOMINAL PAIN
[2019-08-22] MEDS ORDERED: SODIUM PHOSPHATE - 15 MM in SODIUM CHLORIDE 250 ML IVPB ONE (10:00)
[2019-08-22] MEDS: ENOXAPARIN NA (PORCINE) 40 MG/0.4 ML DISP.SYRIN SQ SCH (10:35)
--- NOTE | 2019-08-22 12:30 | PN.GI ---
GI Progress Note Subjective: abdominal pain resolved, tolerating diet off IV fluids - Objective Vital Signs: Vital Signs Temperature 98.4 F 08/22/19 10:00 Pulse Rate 74 08/22/19 10:00 Respiratory Rate 16 08/22/19 10:00 Blood Pressure 99/66 08/22/19 10:00 O2 Sat by Pulse Oximetry (%) 100 08/22/19 08:00 Constitutional: Well Nourished Eyes: Yes: Conjunctiva Clear HENT: Yes: Atraumatic Neck: Yes: Supple Cardiovascular: Yes: Regular Rate and Rhythm Respiratory: Yes: CTA Bilaterally ...Palpate: Yes: Soft. No: Firm/Rigid, Guarding, Hepatomegaly, Mass, Pulsatile Mass, Splenomegaly, Tenderness Labs: CBC, BMP 08/21/19 06:00 08/22/19 05:30 INR, PTT INR 1.06 (0.83-1.09) 08/20/19 11:28 Problem List - Problems (1) Abdominal pain Assessment/Plan: resolved, r/o secondary to ischemia from dehydration, hypercoaguable state, congenital band, intermittent intussuception R> further gi w/u as an outpatient 'okay to discharge low fiber , lactose free Code(s): R10.9 - UNSPECIFIED ABDOMINAL PAIN
--- NOTE | 2019-08-22 13:47 | PN ---
Teaching Attending Note Name of Resident: Lisa Rodarte ATTENDING PHYSICIAN STATEMENT I saw and evaluated the patient. I reviewed the resident's note and discussed the case with the resident. I agree with the resident's findings and plan as documented. SUBJECTIVE: Improvement in mid-abdominal cramping. No fever/chills. No further nausea/vomiting. No hematmesis, no diarrhea. OBJECTIVE: Afebrile, hemodynamically Stable Last Vital Signs Temp Pulse Resp BP Pulse Ox 98.4 F 74 16 99/66 100 08/22/19 10:00 08/22/19 10:00 08/22/19 10:00 08/22/19 10:00 08/22/19 08:00 Heart - S1, S2, RRR Lungs - Clear to auscultation. Abdomen - Soft, mild Periumbilical tenderness. No rebound. Bowel Sounds normal. Extremities - no edema, no calf tenderness. Laboratory Results - last 24 hr 08/22/19 05:30 Sodium 140 Potassium 4.2 Chloride 108 H Carbon Dioxide 26 Anion Gap 7 L BUN 5.2 L Creatinine 0.7 Est GFR (CKD-EPI)AfAm 137.62 Est GFR (CKD-EPI)NonAf 118.74 Random Glucose 93 Calcium 8.4 L Phosphorus 2.4 L Magnesium 2.1 Current Medications Generic Name Dose Route Start Last Admin Trade Name Gianna PRN Reason Stop Dose Admin Acetaminophen 750 mg 08/21/19 13:23 Ofirmev Injection - IVPB Q6H PRN PAIN LEVEL 4 - 6 Acetaminophen 650 mg 08/21/19 20:19 08/21/19 20:42 Tylenol - PO 650 mg Q6H PRN Administration Fever Or Pain Enoxaparin Sodium 40 mg 08/21/19 10:00 08/22/19 10:35 Lovenox - SQ Not Given DAILY JOSE ELIAS Ceftriaxone Sodium 1 gm/ 50 mls @ 100 mls/hr 08/21/19 10:00 08/21/19 09:48 Dextrose IVPB 100 mls/hr DAILY JOSE ELIAS Administration Metronidazole 500 mg in 100 mls @ 100 mls/hr 08/20/19 18:00 08/22/19 02:31 Flagyl 500mg Premixed Ivpb - IVPB Not Given Q8H-IV JOSE ELIAS Sodium Chloride 1,000 mls @ 100 mls/hr 08/22/19 08:15 Normal Saline - IV ASDIR JOSE ELIAS Sodium Phosphate 15 mm/ Sodium 255 mls @ 62.5 mls/hr 08/22/19 10:00 Chloride IVPB 08/22/19 14:04 ONCE ONE Morphine Sulfate 2 mg 08/20/19 17:50 08/21/19 07:47 Morphine Sulfate IVPUSH 2 mg Q4H PRN Administration PAIN LEVEL 6-10 Ondansetron HCl 4 mg 08/20/19 18:48 08/21/19 04:01 Zofran Injection IVPUSH 4 mg Q6H PRN Administration NAUSEA AND/OR VOMITING Pantoprazole Sodium 40 mg 08/20/19 22:00 08/21/19 22:59 Protonix Iv IVPUSH Not Given BID [facility] Prochlorperazine Edisylate 10 mg 08/20/19 21:46 08/21/19 06:56 Compazine Injection - IVPB 10 mg Q6H PRN Administration NAUSEA AND/OR VOMITING Home Medications Medication Instructions Recorded Linaclotide [Linzess] 145 mcg PO DAILY 08/21/19 Norethindrone-E.estradiol-Iron 1 tab PO DAILY 08/21/19 [Junel Fe 1 mg-20 Mcg Tablet] Rifaximin [Xifaxan] 550 mg PO TID 08/21/19 ASSESSMENT AND PLAN: 29 year old female with history of recurrent non-specific abdominal pain, presents with severe abdominal pain, bloating. Hx of constipation which has reportedly resolved since daily Miralax. Some nausea and vomiting associated with Xifaxan given by Dr. Mcgrath as out-patient. 1. Non-specific abdominal pain, etiology unclear, refractory requiring IV analgesia Amylase/Lipase wnl. US Abdomen - No acute findings - no cholecystitis. CTA Abdomen - no acute findings except for ovarian cyst. Vasculature intact, without ischemia. Lactic Acid 2.8, down to 0.9 after IV hydration. Seen by GI who recommends further work-up as an out-patient. Evaluated by Surgery - for possible eventual exploratory/diagnostic laparoscopy if no GI resolution Tolerating oral intake today. Recommend to patient to stop OCP and monitor for symptom resolution, as listed side effect of her OCP is abdominal bloating and pain. 2. R Ovarian Cyst - increasing in size from 1 month ago as seen on TV US (2.9 x 1.3 x 1 cm with cystic nodule) Gynecology evaluated - pain does not appear to be related to ovarian cyst, ? endometriosis. Gynecology follow up as out-patient. 3. Hypophosphatemia - repleted. DVT Px - Lovenox SQ GI Px - PPI BID Dispo - likely discharge today if tolerating PO.
[2019-08-22 14:58] VITALS: BP 101/57; PULSE 90; TEMP 98
--- NOTE | 2019-08-22 15:06 | DS ---
Physical Exam: SUBJECTIVE: Patient seen and examined at bedside this morning. No acute events overnight. Patient reports feeling better with improvement in abdominal pain. Denies nausea, vomiting, headache, fevers, chills, diarrhea. OBJECTIVE: Vital Signs Temperature 98.0 F 08/22/19 14:54 Pulse Rate 90 08/22/19 14:54 Respiratory Rate 15 08/22/19 14:54 Blood Pressure 101/57 L 08/22/19 14:54 O2 Sat by Pulse Oximetry (%) 100 08/22/19 08:00 PHYSICAL EXAM GENERAL: The patient is awake, alert, and fully oriented, in no acute distress. NECK: Trachea midline, full range of motion, supple. LUNGS: Breath sounds equal, clear to auscultation bilaterally. HEART: Regular rate and rhythm, S1, S2 without murmur, rub or gallop. ABDOMEN: Soft, mild periumbilical tenderness on deep palpation, nondistended, normoactive bowel sounds. EXTREMITIES: 2+ pulses, warm, well-perfused, no edema. SKIN: Warm, dry, normal turgor, no rashes or lesions noted. LABS Laboratory Results - last 24 hr 08/22/19 05:30 Sodium 140 Potassium 4.2 Chloride 108 H Carbon Dioxide 26 Anion Gap 7 L BUN 5.2 L Creatinine 0.7 Est GFR (CKD-EPI)AfAm 137.62 Est GFR (CKD-EPI)NonAf 118.74 Random Glucose 93 Calcium 8.4 L Phosphorus 2.4 L Magnesium 2.1 US Abdomen - No sonographic evidence of cholelithiasis or acute cholecystitis. There is no definite biliary tract dilatation CTA Abdomen - No embolic disease to the mesenteric vessels noted. No dissections are identified. No bowel wall thickening or obstruction identified. No free air/fluid is present. A right adnexal cyst is noted which could be further assessed with US imaging. Transvaginal US - interval development of R ovarian cyst 2.9x 1.3cm(from 2.5cm) HOSPITAL COURSE: Date of Admission:08/21/19 Date of Discharge: 08/22/19 Patient is a 29 year old female with history of recurrent non-specific abdominal pain, who presented with severe abdominal pain, bloating associated wiht nausea and vomiting. CTA of abdomen and pelvis was done which revealed no acute findings except for ovarian cyst, vasculature intact, without ischemia. Transvaginal US revealed interval increase of the right ovarian cyst. Patient was evaluated by GI and she was started on IV Flagyl and Ceftriaxone. Surgery and Gynecology were consulted and no immediate surgical interventions were recommended. Patient clinically improved and outpatient GI follow up was recommended for further work-up, and patient instructed to have low fiber, lactose free diet. Discharge Summary Reason For Visit: ABD PAIN Condition: Stable - Instructions Diet, Activity, Other Instructions: Your visit You were evaluated in the hospital for severe abdominal pain with nausea and vomiting. You received imaging which showed an interval increase in size in the Right ovarian cyst. The surgery and gynecology teams were consulted and recommended no surgical interventions at this time. Gastroenterology recommended low fiber and lactose free diet, with further work-up as outpatient. Follow up Please follow up with primary care provider in 1 week. Please follow up with gastroenterology (Dr. Mcgrath) within 1 week. Please follow up with gynecology (Dr. Finnegan) in 2 weeks. Additional instructions - diet: Low fiber , Lactose-free diet (no fruits, no vegetables, no dairy) - activity: regular activity as tolerated Please seek immediate medical evaluation or go to the Emergency Department if you experience: - severe worsening abdominal pain, nausea, vomiting - fever, chills Referrals: Lan Mcgrath MD [Staff Physician] - Robi Finnegan MD [Staff Physician] - Jose Luis Kidd [Staff Physician] - Disposition: HOME - Home Medications Comprehensive Discharge Medication List: Ambulatory Orders Linaclotide [Linzess] 145 mcg PO DAILY 08/21/19 Norethindrone-E.estradiol-Iron [Junel Fe 1 mg-20 Mcg Tablet] 1 tab PO DAILY Rifaximin [Xifaxan] 550 mg PO TID 08/21/19 ATTENDING PHYSICIAN STATEMENT I saw and evaluated the patient. I reviewed the resident's note and discussed the case with the resident. I agree with the resident's findings and plan as documented. SUBJECTIVE: OBJECTIVE: ASSESSMENT AND PLAN:
[2019-08-22] MEDS: PANTOPRAZOLE SODIUM 40 MG VIAL IVPUSH SCH (16:02)
[2019-08-22] MEDS: CEFTRIAXONE 1 GM in DEXTROSE 5%-WATER - 50 ML IVPB SCH (16:02)
== END 2019-08-22 17:30 | disposition home or self-care (01) | DRG 761 ==
LOC: JER 11:02 → JERBED 15:03 → INTOOBSV 15:03 → J7W 17:07 → OBSVTOIN 08-21 14:39
DX: N83.201 Unspecified ovarian cyst, right side (principal); K59.09 Other constipation; R10.9 Unspecified abdominal pain; E83.42 Hypomagnesemia; E83.39 Other disorders of phosphorus metabolism; R11.2 Nausea with vomiting, unspecified
CPT/HCPCS: 36415; 74174-TC; 76705-TC; 76830-TC; 80048; 80053; 81003; 82150; 83605; 83690; 83735; 84100; 84703; 85025; 85027; 85610; 85651; 86140; 93005; 93010; 99283-25; G0378; J0131; J7030

== ENCOUNTER 2020-09-13 10:56 | Emergency (ER) | payer BC | END 2020-09-13 11:05 | disposition home or self-care (01) | LOC: JVIRT 10:56 | DX: Z03.818 Encounter for observation for suspected exposure to other biological agents ruled out (principal) | CPT/HCPCS: C9803; Q3014-GT; U0003 ==

== ENCOUNTER 2020-10-01 10:45 | Emergency (ER) | payer BC | END 2020-10-01 11:51 | disposition home or self-care (01) | LOC: JVIRT 10:45 | DX: R05 Cough (principal); R09.81 Nasal congestion; Z11.59 Encounter for screening for other viral diseases | CPT/HCPCS: C9803; Q3014-GT; U0003 ==

== ENCOUNTER 2022-04-25 20:41 | Emergency (ER) | payer BC ==
[2022-04-25] MEDS ORDERED: ACETAMINOPHEN 1000 MG/100 ML BAG IVPB ONE (20:45)
[2022-04-25] MEDS ORDERED: SODIUM CHLORIDE 1,000 ML IV STA (20:45)
[2022-04-25 20:53] VITALS: BP 105/72; PULSE 100; TEMP 98.9
[2022-04-25] MEDS ORDERED: ACETAMINOPHEN INJECTION 100 ML IVPB ONE (21:08)
[2022-04-25 22:00] LABS: BASO % 0.6 % (0-2.0); EOS % 0.9 % (0-4.5); HEMATOCRIT 36.5 % (32.4-45.2); HEMOGLOBIN 12.5 GM/dL (10.7-15.3); MCH 28.5 pg (25.7-33.7); MCHC 34.4 g/dl (32.0-36.0); MEAN PLT VOLUME 8.2 fl (7.5-11.1); MONO % 7.2 % (3.8-10.2); NEUT % 57.3 % (42.8-82.8); PLATELET COUNT 303 10^3/uL (134-434); RBC 4.39 M/mm3 (3.60-5.2); RDW 14.7 % (11.6-15.6); WHITE BLOOD COUNT 9.7 K/mm3 (4.0-10.0)
[2022-04-25 22:05] LABS: EPI CELLS 12 /uL (0-25.1); HYALINE CASTS 1 /uL (0-3.1); URINE APPEARANCE CLEAR; URINE BACTERIA 207 /uL (0-1359); URINE BILIRUBIN NEGATIVE (NEGATIVE); URINE COLOR YELLOW; URINE GLUCOSE (UA) NEGATIVE (NEGATIVE); URINE KETONE NEGATIVE (NEGATIVE); URINE LEUK ESTERASE TRACE (NEGATIVE); URINE NITRITE NEGATIVE (NEGATIVE); URINE PROTEIN NEGATIVE (NEGATIVE); URINE RBC 16 /uL (0-23.9); URINE UROBILINOGEN 0.2 mg/dL (0.2-1.0); URINE WBC 32 /uL (0-25.8)
[2022-04-25 22:16] LABS: CALCIUM 9.1 mg/dL (8.5-10.1)
[2022-04-25 22:17] LABS: ALBUMIN 3.9 g/dl (3.4-5.0); BLOOD UREA NITROGEN 8.2 mg/dL (7-18)
[2022-04-25 22:19] LABS: CREATININE 0.7 mg/dL (0.55-1.3)
[2022-04-25 22:21] LABS: BILIRUBIN,TOTAL 0.4 mg/dL (0.2-1); TOT PROT 7.5 g/dl (6.4-8.2)
[2022-04-25 22:22] VITALS: BMI 19.6
== END 2022-04-25 22:49 | disposition home or self-care (01) ==
LOC: JER 20:41
PROC: 3E0337Z Introduction of Electrolytic and Water Balance Substance into Peripheral Vein, Percutaneous Approach (ICD-10-PCS; principal; 2022-04-25)
DX: O23.41 Unspecified infection of urinary tract in pregnancy, first trimester (principal); O26.891 Other specified pregnancy related conditions, first trimester; R10.9 Unspecified abdominal pain; Z3A.01 Less than 8 weeks gestation of pregnancy
CPT/HCPCS: 36415; 76817-TC; 80053; 81003; 83690; 84702; 85025; 86850; 86900; 86901; 99284-25

== ENCOUNTER 2023-06-18 22:19 | Emergency (ER) | payer BC ==
[2023-06-18] MEDS ORDERED: ONDANSETRON 4 MG/2 ML VIAL IVPUSH ONE (22:21)
[2023-06-18] MEDS ORDERED: SODIUM CHLORIDE 1,000 ML IV STA ×2 (22:21→22:43)
[2023-06-18] MEDS ORDERED: FAMOTIDINE 20 MG/50 ML IVPB 20 MG/50 ML MG IVPB ONE ×2 (22:27→22:32)
[2023-06-18 22:31] VITALS: BP 117/77; PULSE 85; RESP 16; TEMP 98.5; BMI 19.1
[2023-06-18] MEDS ORDERED: ACETAMINOPHEN INJECTION 100 ML IVPB ONE (22:45)
[2023-06-18] MEDS ORDERED: ACETAMINOPHEN 1000 MG/100 ML BAG IVPB ONE (22:45)
[2023-06-18] MEDS ORDERED: METOCLOPRAMIDE HCL INJECTION 10 MG/2 ML VIAL IVPB ONE (23:29)
[2023-06-18] MEDS ORDERED: METOCLOPRAMIDE HCL INJECTION 10 MG/2 ML VIAL ONE (23:30)
[2023-06-19] MEDS ORDERED: ONDANSETRON 4 MG/2 ML VIAL IVPB ONE (00:18)
[2023-06-19] MEDS ORDERED: ONDANSETRON 4 MG/2 ML VIAL ONE (00:19)
[2023-06-19] MEDS ORDERED: ONDANSETRON 4 MG/2 ML VIAL IVPUSH ONE (00:24)
== END 2023-06-19 01:09 | disposition home or self-care (01) ==
LOC: FER 22:19
PROC: 3E033GC Introduction of Other Therapeutic Substance into Peripheral Vein, Percutaneous Approach (ICD-10-PCS; principal; 2023-06-18)
PROC: 3E033NZ Introduction of Analgesics, Hypnotics, Sedatives into Peripheral Vein, Percutaneous Approach (ICD-10-PCS; 2023-06-18)
PROC: 3E033GC Introduction of Other Therapeutic Substance into Peripheral Vein, Percutaneous Approach (ICD-10-PCS; 2023-06-18)
PROC: 3E033GC Introduction of Other Therapeutic Substance into Peripheral Vein, Percutaneous Approach (ICD-10-PCS; 2023-06-18)
PROC: 3E0337Z Introduction of Electrolytic and Water Balance Substance into Peripheral Vein, Percutaneous Approach (ICD-10-PCS; 2023-06-18)
PROC: 3E033GC Introduction of Other Therapeutic Substance into Peripheral Vein, Percutaneous Approach (ICD-10-PCS; 2023-06-19)
DX: R11.2 Nausea with vomiting, unspecified (principal); R53.1 Weakness; R53.81 Other malaise; R50.9 Fever, unspecified; K52.9 Noninfective gastroenteritis and colitis, unspecified
CPT/HCPCS: 99284-25